=== PATIENT | female | born 1935 | race Caucasian/White ===

== ENCOUNTER 2018-04-24 12:55 | Emergency (ER) | payer MEDICARE, BC ==
--- NOTE | 2018-04-24 12:59 | EDM.PDOC ---
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 Past medical history: As per history of present illness and as reviewed below otherwise noncontributory. Surgical history: As per history of present illness and as reviewed below otherwise noncontributory. Social history: No reported history of drug or alcohol abuse. Family history: As per history of present illness and as reviewed below otherwise noncontributory. Physical exam: HEENT: Atraumatic, normocephalic, pupils reactive, negative for conjunctival pallor or scleral icterus, mucous membranes moist, throat clear, neck supple, nontender, trachea midline. Lungs: Clear to auscultation, breath sounds equal bilaterally, chest nontender. Heart: S1S2, regular, negative for clicks, rubs, or JVD. Abdomen: Soft, nondistended, nontender. Negative for masses or hepatosplenomegaly. Negative for costovertebral tenderness. Pelvis: Stable nontender. Genitourinary: Deferred. Rectal: Deferred. Extremities: Atraumatic, negative for cords or calf pain. Neurovascular unremarkable. Neuro: Awake, alert, oriented. Cranial nerves II through XII unremarkable. Cerebellum unremarkable. Motor and sensory unremarkable throughout. Exam nonfocal. Diagnostics: CBC CMP UA INR Head CT cervical spine CT no contrast [] chest 1 view pelvis 1 view plain films Therapeutics: [] continue current medications Return to [facility] Impression: []medical screening exam Definitive disposition and diagnosis as appropriate pending reevaluation and review of above. - Related Data Home Meds: Home Meds Acetaminophen 500 mg PO Q6H PRN 04/24/18 [History] Apixaban [Eliquis] 2.5 mg PO BID 04/24/18 [History] Aspirin 81 mg PO DAILY 04/24/18 [History] Carvedilol 3.125 mg PO BID 04/24/18 [History] Cholecalciferol (Vitamin D3) [Vitamin D3] 5,000 unit PO DAILY 04/24/18 [History] Ciprofloxacin HCl [Cipro] 250 mg PO BID 04/24/18 [History] Cranberry 500 mg PO DAILY 04/24/18 [History] Cyanocobalamin (Vitamin B-12) [B-12] 1,000 mcg PO DAILY 04/24/18 [History] Escitalopram [Lexapro] 10 mg PO DAILY 04/24/18 [History] Furosemide 10 mg PO DAILY 04/24/18 [History] Levothyroxine 112 mcg PO ACBREAKFAST 04/24/18 [History] Losartan [Cozaar] 25 mg PO DAILY 04/24/18 [History] Lutein/Minerals/Vit A,C & E [Ocuvite] 1 tab PO DAILY 04/24/18 [History] Multivitamin [One Daily] 1 each PO DAILY 04/24/18 [History] Sennosides/Docusate Sodium [Senna-Docusate Sodium Tablet] 1 each PO DAILY [History] levETIRAcetam [Keppra] 500 mg PO BID 04/24/18 [History] Review of Systems - Review of Systems Review Of Systems: See Below ED EXAM, GENERAL - Physical Exam Exam: See Below Course - Vital Signs Last Recorded V/S: Last Vital Signs Temp 98.7 F 04/24/18 12:58 Pulse 60 04/24/18 12:58 Resp 12 04/24/18 12:58 BP 142/44 H 04/24/18 12:58 Pulse Ox 97 04/24/18 12:58 - Orders/Labs/Meds Orders: Active Orders 24 hr Category Date Time Status UA RFX WISAM AND CULT IF INDIC [URIN] Stat Lab 04/24/18 12:58 Ordered Labs: Laboratory Tests 04/24/18 04/24/18 04/24/18 Range/Units 13:08 13:08 13:08 WBC 5.15 (4.0-11.0) K/uL RBC 4.04 L (4.30-5.90) M/uL Hgb 12.5 (12.0-16.0) g/dL Hct 37.4 (36.0-46.0) % MCV 92.6 (80.0-98.0) fL MCH 30.9 (27.0-32.0) pg MCHC 33.4 (31.0-37.0) g/dL RDW Std Deviation 45.6 (28.0-62.0) fl RDW Coeff of Tay 14 (11.0-15.0) % Plt Count 191 (150-400) K/uL MPV 9.50 (7.40-12.00) fL Neut % (Auto) 54.3 (48.0-80.0) % Lymph % (Auto) 33.8 (16.0-40.0) % Elliott % (Auto) 9.7 (0.0-15.0) % Eos % (Auto) 1.4 (0.0-7.0) % Baso % (Auto) 0.8 (0.0-1.5) % Neut # (Auto) 2.8 (1.4-5.7) K/uL Lymph # (Auto) 1.7 (0.6-2.4) K/uL Elliott # (Auto) 0.5 (0.0-0.8) K/uL Eos # (Auto) 0.1 (0.0-0.7) K/uL Baso # (Auto) 0.0 (0.0-0.1) K/uL Nucleated RBC % 0.0 /100WBC Nucleated RBCs # 0 K/uL INR 1.07 Sodium 139 (136-145) mmol/L Potassium 3.8 (3.5-5.1) mmol/L Chloride 104 (98-107) mmol/L Carbon Dioxide 26.0 (21.0-32.0) mmol/L BUN 18 (7.0-18.0) mg/dL Creatinine 1.0 (0.6-1.0) mg/dL Est Cr Clr Drug Dosing TNP Estimated GFR (MDRD) 52.8 ml/min Glucose 115 H (74-106) mg/dL Calcium 9.4 (8.5-10.1) mg/dL Total Bilirubin 0.4 (0.2-1.0) mg/dL AST 26 (15-37) IU/L ALT 27 (14-63) IU/L Alkaline Phosphatase 126 H (46-116) U/L Troponin I < 0.050 (0.000-0.056) ng/mL Total Protein 7.0 (6.4-8.2) g/dL Albumin 3.5 (3.4-5.0) g/dL Globulin 3.5 (2.6-4.0) g/dL Albumin/Globulin Ratio 1.0 (0.9-1.6) Departure - Departure Time of Disposition: 14:34 Disposition: Home, Self-Care 01 Condition: Good Clinical Impression: Encounter for medical screening examination - Discharge Information Forms: ED Department Discharge Additional Instructions: The following information is given to patients seen in the emergency department who are being discharged to home. This information is to outline your options for follow-up care. We provide all patients seen in our emergency department with a follow-up referral. The need for follow-up, as well as the timing and circumstances, are variable depending upon the specifics of your emergency department visit. If you don't have a primary care physician on staff, we will provide you with a referral. We always advise you to contact your personal physician following an emergency department visit to inform them of the circumstance of the visit and for follow-up with them and/or the need for any referrals to a consulting specialist. The emergency department will also refer you to a specialist when appropriate. This referral assures that you have the opportunity for follow-up care with a specialist. All of these measure are taken in an effort to provide you with optimal care, which includes your follow-up. Under all circumstances we always encourage you to contact your private physician who remains a resource for coordinating your care. When calling for follow-up care, please make the office aware that this follow-up is from your recent emergency room visit. If for any reason you are refused follow-up, please contact the [facility] emergency department at and asked to speak to the emergency department charge nurse. - My Orders Last 24 Hours: My Active Orders 04/24/18 12:58 UA RFX WISAM AND CULT IF INDIC [URIN] Stat - Assessment/Plan Last 24 Hours: My Active Orders 04/24/18 12:58 UA RFX WISAM AND CULT IF INDIC [URIN] Stat
[2018-04-24 13:47] LABS: CHLORIDE,CL 104 mmol/L (98-107); SODIUM,NA 139 mmol/L (136-145)
--- NOTE | 2018-04-24 13:59 | CR ---
EXAMINATION: Portable chest radiograph. HISTORY: Chest pain. FINDINGS: The trachea is midline. The cardiomediastinal silhouette is within normal limits. No pulmonary infiltrates, effusions or pneumothorax. Right glenohumeral replacement hardware noted. There is a left-sided pacemaker. Bone mineralization otherwise appears osteopenic. IMPRESSION: No acute cardiopulmonary process.
--- NOTE | 2018-04-24 14:01 | CR ---
EXAMINATION: Pelvis HISTORY: Pain COMPARISON: None TECHNIQUE: AP view FINDINGS: There is no acute osseous abnormality, dislocation, or fracture. Bone mineralization and joint spaces appear preserved. SI joints are symmetric. The iliopectineal lines are intact. Bowel gas projects over the pubic symphysis. Mild osteophyte formation within the hips, right greater than left. Partially visualized lumbar spine hardware. IMPRESSION: Mild degenerative changes without acute findings.
--- NOTE | 2018-04-24 14:13 | CT ---
EXAMINATION: Non contrast CT head. Coronal and sagittal reformats. HISTORY: Pain FINDINGS: No evidence of intra or extra axial hemorrhage, mass, midline shift, hydrocephalus or edema. There is encephalomalacia within the right occipital parietal region with overlying calvarial postsurgical changes. Moderate periventricular and subcortical white matter hypodensities noted. No hypoattenuation changes in the major vascular territories to suggest acute infarct. No abnormal intracranial calcifications are detected. No evidence of substantial vascular calcifications. Paranasal sinuses and mastoid air cells are well aerated without substantial findings. Orbits and globes are symmetric. Pituitary fossa appears unremarkable. Calvarium is otherwise intact. No evidence of skull fracture. IMPRESSION: 1. No definite acute intracranial findings. 2. Right occipitoparietal postsurgical changes and encephalomalacia. 3. Moderate small vessel ischemic changes.
--- NOTE | 2018-04-24 14:15 | CT ---
EXAMINATION: CT cervical spine HISTORY: Pain COMPARISON: None TECHNIQUE: Axial CT imaging obtained through the cervical spine without contrast. Coronal and sagittal reconstructions obtained. FINDINGS: There is reversal of the normal cervical lordosis. Vertebral body heights and disc spaces appear well-maintained. As discussed [place] there is no fracture or acute osseous abnormality. Bone mineralization is mildly osteopenic. Marginal osteophyte formation is noted. Lung apices are clear. Paravertebral soft tissues appear normal. IMPRESSION: 1. Osteopenia and degenerative changes within the cervical spine without acute findings.
== END 2018-04-24 14:49 | disposition home or self-care (01) ==
LOC: MW.ED 12:55
DX: R51 Headache (principal); Z13.9 Encounter for screening, unspecified; R29.6 Repeated falls; Z79.82 Long term (current) use of aspirin; Z79.899 Other long term (current) drug therapy
CPT/HCPCS: 36415; 70450; 70450-26; 71045; 71045-26; 72125; 72125-26; 72170; 72170-26; 80053; 84484; 85025; 85610; 99284; 99284-25

== ENCOUNTER 2018-04-25 15:04 | Observation (INO) | payer MEDICARE, BC ==
[2018-04-25] MEDS ORDERED: Sodium Chloride 0.9% 500 ML IV SCH (15:30)
[2018-04-25] MEDS ORDERED: Sodium Chloride 0.9% 10 ML Syringe FLUSH PRN (15:30)
[2018-04-25] MEDS ORDERED: Sodium Chloride 0.9% 2.5 ML Syringe FLUSH PRN (15:30)
--- NOTE | 2018-04-25 15:32 | EDM.PDOC ---
ED HPI GENERAL MEDICAL PROBLEM - General Chief Complaint: General Stated Complaint: SPOKE TO NURSE Time Seen by Provider: 04/25/18 15:17 - History of Present Illness INITIAL COMMENTS - FREE TEXT/NARRATIVE: HISTORY AND PHYSICAL: History of present illness: The patient is 82-year-old female who resides at [facility] in their basic care unit and has a history of hypertension hypothyroidism pacemaker for irregular heartbeat and a recent UTI for which she was treated with antibiotics, Cipro, and finished yesterday and was seen here yesterday after several falls. According to the providers note she had had at least 2 falls over the last week or so and her last fall at 6 AM yesterday and she is currently on Eliquis and was sent here for evaluation. No one witnessed the fall but the patient complained of a headache. Yesterday the patient had a CT scan of her head C-spine as well as a chest x-ray and pelvis x-ray and labs all of which were negative. The patient does have a history of a hemorrhagic stroke with a craniotomy in the right occipitoparietal area and postsurgical changes were seen on the CT scan. And was confused on the evaluation yesterday and according to the son at bedside as well as the providers at [facility] this is been an on and off process over the last several weeks to months. She has had days where she was more confused and altered than other days and she has also had days where she has pushed it or showed other individuals at the [facility] over the last 3 weeks. The patient was [facility] the [facility] and according to the note that was sent with the patient today from the director translation at [facility] she had to be moved to the [facility] side because she was unable to care for herself yesterday after being seen. She rates her note that she has had 2 falls this week and has been wandering into other people's rooms and has had periods of this wandering in the last 2 weeks she's been trying to escape the facility. The pushing hitting and shoving was worse today than it is ever been but she has had episodes of this over the last 3 weeks. She was also very verbally loud and verbally aggressive this afternoon. It was noticed that she was unable to feed herself and that she seemed to be unaware of what silverware to use and she was also sucking on her thumb. Hoarding to the sum she has had waxing and waning episodes over the last few weeks as the nurse documents but over the last 2 days he says there is been an abrupt acceleration. He says he sees her every day and 2 days ago she was more to baseline and yesterday and today she is significantly different. In the ED the patient denies any complaints of any pain currently and is actually unsure why she is here. She has no recall of any these events when I try to prompt her. She thinks it's 1944 but knows her own name and knows the president is. The patient was sent here by [place] [facility] because they would need to move her to their locked unit due to safety factors and wants to make sure of why there is been suction acceleration over the last 2 days. The patient also has a history of bilateral knee replacement and has no complaints of any extremity pain and no neck or back pain. He noticed a bruise on her left posterior ribs on my evaluation and she says that this is tender but she did not offer complaints of pain without my prompting. According to the paperwork the patient is a code 3 status. The patient is also on Keppra likely due to her prior surgeries for preventative. The son and nursing from [place] documents that the patient finished her antibiotics yesterday. Nursing also documents that she was unable to stand after being seen in the ED yesterday but today she is able to ambulate into the ED without assistance with her walker. There is also documentation that the patient became more verbally aggressive and tried to hit staff and push them when they were trying to give her her medications and she was refusing to take her medications The son also tells me that she has had intermittent bouts of paranoia where she thinks people are watching her or doing things to her and then she will be improved. Review of systems: As per history of present illness and below otherwise all systems reviewed and negative. Past medical history: As per history of present illness and as reviewed below otherwise noncontributory. Surgical history: As per history of present illness and as reviewed below otherwise noncontributory. Social history: No reported history of drug or alcohol abuse. Family history: As per history of present illness and as reviewed below otherwise noncontributory. Physical exam: General: Well-developed well-nourished female who is cooperative in the room and is alert and oriented to her own person but not the year and knows who the president is. She is interactive with me but quiet and follows all simple commands. The signs are noted by me. HEENT: Atraumatic, normocephalic, pupils reactive, negative for conjunctival pallor or scleral icterus, mucous membranes moist, throat clear, neck supple, nontender, trachea midline. Lungs: Clear to auscultation, breath sounds equal bilaterally, chest nontender. There is a subacute ecchymosis seen at the left posterior rib areas but there is no crepitus defects or deformities and really only minimal tenderness on deep palpation. Heart: S1S2, regular rate and rhythm no overt murmurs Abdomen: Soft, nondistended, nontender. Negative for masses or hepatosplenomegaly. Negative for costovertebral tenderness. Pelvis: Stable nontender. Genitourinary: Deferred. Rectal: Deferred. Extremities: Atraumatic, negative for cords or calf pain. Neurovascular unremarkable. Neuro: Awake, alert, oriented to person but not time. Cranial nerves II through XII unremarkable. Cerebellum unremarkable. Motor and sensory unremarkable throughout. Exam nonfocal. The patient has good strength in the bed and actually ambulated into the ED with her walker without any distress Back: there are no midline step-offs tenderness or defects of the thoracic or lumbar spine and no posterior pelvis tenderness. Please see above for posterior rib exam Diagnostics: EKG CBC CMP INR troponin TSH UA urine culture CT scan of the head left rib x- rays with chest Keppra level Therapeutics: IV O2 monitor gentle IV fluids and Rocephin Please note that when the nurse was trying to obtain the blood she initially was calm and then started trying to hit nursing and she did kick her son. The patient was able to be redirected and calm down to get the procedure performed. 1900: Was discussed with our hospitalist Dr. Gama and he is aware of the breath of this case. Currently the patient is calm but does have the propensity to act out when she is asked to do something or procedure that she does not like. I discussed at length with the son at bedside who is very concerned and feels that there is some potential medical issue even though I tried to stress to him that this is likely just a progression of her confusion/dementia that she has exhibited over the last few weeks and it is just more accelerated as a result of the falls. I've also discussed with him that there is still some sign of a potential UTI and a culture will be sent and I will give a dose of Rocephin. Dr Gama is willing to admit this patient for observation and the son is aware that she will likely need to go back to [place] in the locked unit and may need to go on medication to control some of these behaviors. Lanette will reevaluate the patient for need for medication and will have a dialogue with a provider at [place] as indicated Impression: Progressive confusion, acute on chronic rule out acceleration dementia; recently treated UTI with residual UTI Definitive disposition and diagnosis as appropriate pending reevaluation and review of above. - Related Data Allergies Allergy/AdvReac Type Severity Reaction Status Date / Time No Known Allergies Allergy Verified 04/25/18 15:20 Home Meds: Home Meds Acetaminophen 500 mg PO Q6H PRN 04/24/18 [History] Apixaban [Eliquis] 2.5 mg PO BID 04/24/18 [History] Aspirin 81 mg PO DAILY 04/24/18 [History] Carvedilol 3.125 mg PO BID 04/24/18 [History] Cholecalciferol (Vitamin D3) [Vitamin D3] 5,000 unit PO DAILY 04/24/18 [History] Ciprofloxacin HCl [Cipro] 250 mg PO BID 04/24/18 [History] Cyanocobalamin (Vitamin B-12) [B-12] 1,000 mcg PO DAILY 04/24/18 [History] Escitalopram [Lexapro] 10 mg PO DAILY 04/24/18 [History] Furosemide 10 mg PO QAM 04/24/18 [History] Levothyroxine 112 mcg PO ACBREAKFAST 04/24/18 [History] Losartan [Cozaar] 25 mg PO DAILY 04/24/18 [History] Lutein/Minerals/Vit A,C & E [Ocuvite] 1 tab PO DAILY 04/24/18 [History] Multivitamin [One Daily] 1 each PO DAILY 04/24/18 [History] levETIRAcetam [Keppra] 500 mg PO BID 04/24/18 [History] Cranberry Fruit Extract/Vit C [Cvs Cranberry-Vitamin C Sfgl] 1 each PO DAILY 03/15 [History] Past Medical History HEENT History: Reports: Impaired Vision Cardiovascular History: Reports: Afib, High Cholesterol Gastrointestinal History: Reports: Chronic Constipation Genitourinary History: Reports: UTI, Recurrent Musculoskeletal History: Reports: Osteoarthritis Neurological History: Reports: CVA Other Neuro History: hemoragic CVA Endocrine/Metabolic History: Reports: Hypothyroidism - Past Surgical History Musculoskeletal Surgical History: Reports: Knee Replacement Other Musculoskeletal Surgeries/Procedures:: right knee replacement Social & Family History - Family History Family Medical History: Noncontributory ED ROS GENERAL - Review of Systems Review Of Systems: ROS reveals no pertinent complaints other than HPI. ED EXAM, GENERAL - Physical Exam Exam: See Below (See dictation) Course - Vital Signs Last Recorded V/S: Last Vital Signs Temp 36.3 C 04/25/18 15:24 Pulse 75 04/25/18 18:58 Resp 18 04/25/18 15:24 BP 163/99 H 04/25/18 18:58 Pulse Ox 97 04/25/18 18:58 - Orders/Labs/Meds Orders: Active Orders 24 hr Category Date Time Status Patient Status [ADT] Stat ADT 04/25/18 19:13 Ordered Blood Glucose Check, Bedside [RC] ONETIME Care 04/25/18 15:29 Active Cardiac Monitoring [RC] . DIRECTED Care 04/25/18 15:29 Active EKG Documentation Completion [RC] STAT Care 04/25/18 15:29 Active Oxygen Therapy, ED [RC] ASDIRECTED Care 04/25/18 15:29 Active Pulse Oximetry [RC] ASDIRECTED Care 04/25/18 15:29 Active Ribs 2V w Chest Lt [CR] Stat Exams 04/25/18 15:33 Taken CULTURE URINE [RM] Stat Lab 04/25/18 17:50 Received LEVETIRACETAM, S [REF] Stat Lab 04/25/18 16:04 Received Sodium Chloride 0.9% [Normal Saline] 500 ml Med 04/25/18 15:30 Active IV STAT Sodium Chloride 0.9% [Saline Flush] Med 04/25/18 15:30 Active 10 ml FLUSH ASDIRECTED PRN Sodium Chloride 0.9% [Saline Flush] Med 04/25/18 15:30 Active 2.5 ml FLUSH ASDIRECTED PRN cefTRIAXone [Rocephin in Dextrose,Iso-Osm 1 GM/50 ML] 1 Med 04/25/18 19:07 Ordered gm Premix Bag 1 bag IV ONETIME Saline Lock Insert [OM.PC] Stat Oth 04/25/18 15:29 Ordered Medication Orders Sodium Chloride (Normal Saline) 500 mls @ 999 mls/hr IV STAT WARREN Last Admin: 04/25/18 16:06 Dose: 999 mls/hr Ceftriaxone Sodium/Dextrose 1 (gm/ Premix) 50 mls @ 100 mls/hr IV ONETIME ONE Stop: 04/25/18 19:36 Sodium Chloride (Saline Flush) 10 ml FLUSH ASDIRECTED PRN PRN Reason: Keep Vein Open Last Admin: 04/25/18 16:06 Dose: 10 ml Sodium Chloride (Saline Flush) 2.5 ml FLUSH ASDIRECTED PRN PRN Reason: Keep Vein Open Last Admin: 04/25/18 16:06 Dose: 2.5 ml Labs: Laboratory Tests 04/25/18 04/25/18 04/25/18 Range/Units 16:04 16:04 16:04 WBC 5.00 (4.0-11.0) K/uL RBC 4.03 L (4.30-5.90) M/uL Hgb 12.5 (12.0-16.0) g/dL Hct 37.5 (36.0-46.0) % MCV 93.1 (80.0-98.0) fL MCH 31.0 (27.0-32.0) pg MCHC 33.3 (31.0-37.0) g/dL RDW Std Deviation 46.5 (28.0-62.0) fl RDW Coeff of Tay 14 (11.0-15.0) % Plt Count 204 (150-400) K/uL MPV 9.70 (7.40-12.00) fL Neut % (Auto) 40.8 L (48.0-80.0) % Lymph % (Auto) 43.4 H (16.0-40.0) % Pope % (Auto) 13.2 (0.0-15.0) % Eos % (Auto) 1.8 (0.0-7.0) % Baso % (Auto) 0.8 (0.0-1.5) % Neut # (Auto) 2.0 (1.4-5.7) K/uL Lymph # (Auto) 2.2 (0.6-2.4) K/uL Pope # (Auto) 0.7 (0.0-0.8) K/uL Eos # (Auto) 0.1 (0.0-0.7) K/uL Baso # (Auto) 0.0 (0.0-0.1) K/uL Nucleated RBC % 0.0 /100WBC Nucleated RBCs # 0 K/uL INR 1.05 Sodium 140 (136-145) mmol/L Potassium 4.3 (3.5-5.1) mmol/L Chloride 106 (98-107) mmol/L Carbon Dioxide 28.8 (21.0-32.0) mmol/L BUN 18 (7.0-18.0) mg/dL Creatinine 0.9 (0.6-1.0) mg/dL Est Cr Clr Drug Dosing 38.49 mL/min Estimated GFR (MDRD) 59.7 ml/min Glucose 99 (74-106) mg/dL Calcium 9.3 (8.5-10.1) mg/dL Total Bilirubin 0.4 (0.2-1.0) mg/dL AST 25 (15-37) IU/L ALT 26 (14-63) IU/L Alkaline Phosphatase 118 H (46-116) U/L Troponin I < 0.050 (0.000-0.056) ng/mL Total Protein 7.0 (6.4-8.2) g/dL Albumin 3.5 (3.4-5.0) g/dL Globulin 3.5 (2.6-4.0) g/dL Albumin/Globulin Ratio 1.0 (0.9-1.6) TSH 3rd Generation 0.12 L (0.36-3.74) uIU/mL Urine Color Urine Appearance Urine pH (5.0-8.0) Ur Specific [place] (1.001-1.035) Urine Protein (NEGATIVE) mg/dL Urine Glucose (UA) (NEGATIVE) mg/dL Urine Ketones (NEGATIVE) mg/dL Urine Occult Blood (NEGATIVE) Urine Nitrite (NEGATIVE) Urine Bilirubin (NEGATIVE) Urine Urobilinogen (<2.0) EU/dL Ur Leukocyte Esterase (NEGATIVE) Urine RBC (0-2/HPF) Urine WBC (0-5/HPF) Ur Epithelial Cells (NONE-FEW) Urine Bacteria (NEGATIVE) 04/25/18 Range/Units 17:50 WBC (4.0-11.0) K/uL RBC (4.30-5.90) M/uL Hgb (12.0-16.0) g/dL Hct (36.0-46.0) % MCV (80.0-98.0) fL MCH (27.0-32.0) pg MCHC (31.0-37.0) g/dL RDW Std Deviation (28.0-62.0) fl RDW Coeff of Tay (11.0-15.0) % Plt Count (150-400) K/uL MPV (7.40-12.00) fL Neut % (Auto) (48.0-80.0) % Lymph % (Auto) (16.0-40.0) % Pope % (Auto) (0.0-15.0) % Eos % (Auto) (0.0-7.0) % Baso % (Auto) (0.0-1.5) % Neut # (Auto) (1.4-5.7) K/uL Lymph # (Auto) (0.6-2.4) K/uL Pope # (Auto) (0.0-0.8) K/uL Eos # (Auto) (0.0-0.7) K/uL Baso # (Auto) (0.0-0.1) K/uL Nucleated RBC % /100WBC Nucleated RBCs # K/uL INR Sodium (136-145) mmol/L Potassium (3.5-5.1) mmol/L Chloride (98-107) mmol/L Carbon Dioxide (21.0-32.0) mmol/L BUN (7.0-18.0) mg/dL Creatinine (0.6-1.0) mg/dL Est Cr Clr Drug Dosing mL/min Estimated GFR (MDRD) ml/min Glucose (74-106) mg/dL Calcium (8.5-10.1) mg/dL Total Bilirubin (0.2-1.0) mg/dL AST (15-37) IU/L ALT (14-63) IU/L Alkaline Phosphatase (46-116) U/L Troponin I (0.000-0.056) ng/mL Total Protein (6.4-8.2) g/dL Albumin (3.4-5.0) g/dL Globulin (2.6-4.0) g/dL Albumin/Globulin Ratio (0.9-1.6) TSH 3rd Generation (0.36-3.74) uIU/mL Urine Color YELLOW Urine Appearance HAZY Urine pH 6.5 (5.0-8.0) Ur Specific [place] 1.010 (1.001-1.035) Urine Protein NEGATIVE (NEGATIVE) mg/dL Urine Glucose (UA) NEGATIVE (NEGATIVE) mg/dL Urine Ketones NEGATIVE (NEGATIVE) mg/dL Urine Occult Blood NEGATIVE (NEGATIVE) Urine Nitrite NEGATIVE (NEGATIVE) Urine Bilirubin NEGATIVE (NEGATIVE) Urine Urobilinogen 0.2 (<2.0) EU/dL Ur Leukocyte Esterase SMALL H (NEGATIVE) Urine RBC 0-2 (0-2/HPF) Urine WBC 1-5 (0-5/HPF) Ur Epithelial Cells MODERATE (NONE-FEW) Urine Bacteria FEW (NEGATIVE) Meds: Medications Generic Name Dose Route Start Last Admin Trade Name Freq PRN Reason Stop Dose Admin Sodium Chloride 500 mls @ 999 mls/hr 04/25/18 15:30 04/25/18 16:06 Normal Saline IV 999 mls/hr STAT WARREN Administration Ceftriaxone Sodium/Dextrose 1 50 mls @ 100 mls/hr 04/25/18 19:07 gm/ Premix IV 04/25/18 19:36 ONETIME ONE Sodium Chloride 10 ml 04/25/18 15:30 04/25/18 16:06 Saline Flush FLUSH 10 ml ASDIRECTED PRN Administration Keep Vein Open Sodium Chloride 2.5 ml 04/25/18 15:30 04/25/18 16:06 Saline Flush FLUSH 2.5 ml ASDIRECTED PRN Administration Keep Vein Open Departure - Departure Time of Disposition: 19:18 Disposition: Refer to Observation Condition: Good Clinical Impression: Confusion - Discharge Information Referrals: PCP,Unknown [Primary Care Provider] - Forms: ED Department Discharge - My Orders Last 24 Hours: My Active Orders 04/25/18 15:29 Blood Glucose Check, Bedside [RC] ONETIME Cardiac Monitoring [RC] . DIRECTED EKG Documentation Completion [RC] STAT Oxygen Therapy, ED [RC] ASDIRECTED Pulse Oximetry [RC] ASDIRECTED Saline Lock Insert [OM.PC] Stat 04/25/18 15:30 Sodium Chloride 0.9% [Normal Saline] 500 ml IV STAT Sodium Chloride 0.9% [Saline Flush] 10 ml FLUSH ASDIRECTED PRN Sodium Chloride 0.9% [Saline Flush] 2.5 ml FLUSH ASDIRECTED PRN 04/25/18 15:33 Ribs 2V w Chest Lt [CR] Stat 04/25/18 16:04 LEVETIRACETAM, S [REF] Stat 04/25/18 17:50 CULTURE URINE [RM] Stat 04/25/18 19:07 cefTRIAXone [Rocephin in Dextrose,Iso-Osm 1 GM/50 ML] 1 gm Premix Bag 1 bag IV ONETIME 04/25/18 19:13 Patient Status [ADT] Stat - Assessment/Plan Last 24 Hours: My Active Orders 04/25/18 15:29 Blood Glucose Check, Bedside [RC] ONETIME Cardiac Monitoring [RC] . DIRECTED EKG Documentation Completion [RC] STAT Oxygen Therapy, ED [RC] ASDIRECTED Pulse Oximetry [RC] ASDIRECTED Saline Lock Insert [OM.PC] Stat 04/25/18 15:30 Sodium Chloride 0.9% [Normal Saline] 500 ml IV STAT Sodium Chloride 0.9% [Saline Flush] 10 ml FLUSH ASDIRECTED PRN Sodium Chloride 0.9% [Saline Flush] 2.5 ml FLUSH ASDIRECTED PRN 04/25/18 15:33 Ribs 2V w Chest Lt [CR] Stat 04/25/18 16:04 LEVETIRACETAM, S [REF] Stat 04/25/18 17:50 CULTURE URINE [RM] Stat 04/25/18 19:07 cefTRIAXone [Rocephin in Dextrose,Iso-Osm 1 GM/50 ML] 1 gm Premix Bag 1 bag IV ONETIME 04/25/18 19:13 Patient Status [ADT] Stat
[2018-04-25 16:49] LABS: CHLORIDE,CL 106 mmol/L (98-107); SODIUM,NA 140 mmol/L (136-145)
--- NOTE | 2018-04-25 18:03 | CT ---
INDICATION: Recent fall. Increased confusion. TECHNIQUE: Head CT without contrast. COMPARISON: April 24, 2018. FINDINGS: CSF spaces: Within normal limits for age. Brain parenchyma: There are nonspecific low attenuation white matter changes consistent with chronic microvascular disease. Stable right occipital encephalomalacia. No sign of mass, hemorrhage, or midline shift. Skull base and calvarium: The visualized paranasal sinuses and mastoid air cells demonstrate no acute or significant findings. The visualized orbits are grossly unremarkable. No skull fractures. IMPRESSION: No acute or significant findings.No change from the prior exam. Please note that all CT scans at this facility use dose modulation, iterative reconstruction, and/or weight-based dosing when appropriate to reduce radiation dose to as low as reasonably achievable. Dictated by Kaushik Orellana MD @ Apr 25 2018 5:57PM Signed by Dr. Kaushik Orellana @ Apr 25 2018 6:01PM
[2018-04-25] MEDS ORDERED: cefTRIAXone 1 GM in Premix Bag 1 BAG IV ONE (19:07)
[2018-04-25] MEDS ORDERED: oxyCODONE 5 MG Tab PO PRN (20:48)
[2018-04-25] MEDS ORDERED: Acetaminophen 325 MG Tab PO PRN (20:48)
[2018-04-25] MEDS ORDERED: Ondansetron 4 MG/2 ML SDV IVPUSH PRN (20:49)
[2018-04-25] MEDS: Sodium Chloride 0.9% 1,000 ML IV SCH (22:00)
--- NOTE | 2018-04-26 07:24 | PCM.HP ---
H&P History of Present Illness - General Date of Service: 04/26/18 Admit Problem/Dx: Admission Diagnosis/Problem Admission Diagnosis/Problem Confusion Source of Information: Patient, EMS Notes Reviewed, Old Records History Limitations: Reports: Altered Mental Status - History of Present Illness Initial Comments - Free Text/Narative: The patient is an 82-year-old lady who is a resident at [facility] has presented to the emergency department after concern for confusion as well as a history of more frequent falling. The patient is currently anticoagulated on Eliquis and imaging had been obtained on April 24, 2018. Imaging thus far is negative for acute findings. According to the patient's charting she has been more aggressive, verbally loud and has not been able to complete her activities of daily living while at the [facility]. [facility] had been concerned about the patient wandering and likely will need to have placement and a locked unit. The patient today is somewhat confused. She is not sure why she is here. She has no memory of apparent events in the emergency department yesterday. 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 Patient's family is not with her at this time. Also, according to charting the patient has been exhibiting bouts of paranoia. Her history and review of systems is not reliable. Onset of Symptoms: Reports: Unknown/Unsure Improves with: Reports: None Worsens with: Reports: None - Related Data Allergies/Adverse Reactions: Allergies Allergy/AdvReac Type Severity Reaction Status Date / Time No Known Allergies Allergy Verified 04/25/18 15:20 Home Medications: Home Meds Acetaminophen 500 mg PO Q6H PRN 04/24/18 [History] Apixaban [Eliquis] 2.5 mg PO BID 04/24/18 [History] Aspirin 81 mg PO DAILY 04/24/18 [History] Carvedilol 3.125 mg PO BID 04/24/18 [History] Cholecalciferol (Vitamin D3) [Vitamin D3] 5,000 unit PO DAILY 04/24/18 [History] Ciprofloxacin HCl [Cipro] 250 mg PO BID 04/24/18 [History] Cyanocobalamin (Vitamin B-12) [B-12] 1,000 mcg PO DAILY 04/24/18 [History] Escitalopram [Lexapro] 10 mg PO DAILY 04/24/18 [History] Furosemide 10 mg PO QAM 04/24/18 [History] Levothyroxine 112 mcg PO ACBREAKFAST 04/24/18 [History] Losartan [Cozaar] 25 mg PO DAILY 04/24/18 [History] Lutein/Minerals/Vit A,C & E [Ocuvite] 1 tab PO DAILY 04/24/18 [History] Multivitamin [One Daily] 1 each PO DAILY 04/24/18 [History] levETIRAcetam [Keppra] 500 mg PO BID 04/24/18 [History] Cranberry Fruit Extract/Vit C [Cvs Cranberry-Vitamin C Sfgl] 1 each PO DAILY 03/15 [History] Past Medical History HEENT History: Reports: Impaired Vision Cardiovascular History: Reports: Afib, High Cholesterol, Hypertension, Pacemaker Gastrointestinal History: Reports: Chronic Constipation Genitourinary History: Reports: UTI, Recurrent Musculoskeletal History: Reports: Osteoarthritis Neurological History: Reports: CVA Other Neuro History: hemoragic CVA Psychiatric History: Reports: Dementia Endocrine/Metabolic History: Reports: Hypothyroidism - Infectious Disease History Infectious Disease History: Reports: None - Past Surgical History Head Surgeries/Procedures: Reports: Craniotomy HEENT Surgical History: Reports: None GI Surgical History: Reports: None Female Surgical History: Reports: None Endocrine Surgical History: Reports: None Musculoskeletal Surgical History: Reports: Knee Replacement Other Musculoskeletal Surgeries/Procedures:: bilateral knee replacement Social & Family History - Family History Family Medical History: Noncontributory - Tobacco Use Smoking Status *Q: Unknown Ever Smoked - Caffeine Use Caffeine Use: Reports: None - Recreational Drug Use Recreational Drug Use: No - Living Situation & Occupation Living situation: Reports: , Extended Care Facility Occupation: Retired H&P Review of Systems - Review of Systems: Review Of Systems: Unable To Obtain Exam - Exam Exam: See Below - Vital Signs Vital Signs: Last Vital Signs Temp 36.6 C 04/26/18 04:00 Pulse 70 04/26/18 04:00 Resp 18 04/26/18 04:00 BP 154/60 H 04/26/18 04:00 Pulse Ox 95 04/26/18 04:00 Weight: 69.456 kg - Exam Quality Assessment: No: Supplemental Oxygen General: Alert, Oriented, Cooperative HEENT: Conjunctiva Clear, EACs Clear, EOMI, Nares Patent, PERRLA. No: Mucosa Moist & Onsted (Dry) Neck: Supple, Trachea Midline Lungs: Clear to Auscultation, Normal Respiratory Effort Cardiovascular: Regular Rate, Irregular Rhythm GI/Abdominal Exam: Normal Bowel Sounds, Soft, Non-Tender, No Distention (Female) Exam: Deferred Rectal (Female) Exam: Deferred Back Exam: Normal Inspection (Kyphosis), Full Range of Motion (Age-related restrictions) Extremities: Normal Inspection (For age), No Pedal Edema Skin: Warm, Dry, Intact Neuro Extensive - Mental Status: Alert. No: Oriented x3 (Alert to person) Psychiatric: Alert, Normal Affect, Normal Mood - Patient Data Lab Results Last 24 hrs: Laboratory Results - last 24 hr 04/25/18 04/25/18 04/25/18 Range/Units 16:04 16:04 16:04 WBC 5.00 (4.0-11.0) K/uL RBC 4.03 L (4.30-5.90) M/uL Hgb 12.5 (12.0-16.0) g/dL Hct 37.5 (36.0-46.0) % MCV 93.1 (80.0-98.0) fL MCH 31.0 (27.0-32.0) pg MCHC 33.3 (31.0-37.0) g/dL RDW Std Deviation 46.5 (28.0-62.0) fl RDW Coeff of Tay 14 (11.0-15.0) % Plt Count 204 (150-400) K/uL MPV 9.70 (7.40-12.00) fL Neut % (Auto) 40.8 L (48.0-80.0) % Lymph % (Auto) 43.4 H (16.0-40.0) % [place] % (Auto) 13.2 (0.0-15.0) % Eos % (Auto) 1.8 (0.0-7.0) % Baso % (Auto) 0.8 (0.0-1.5) % Neut # (Auto) 2.0 (1.4-5.7) K/uL Lymph # (Auto) 2.2 (0.6-2.4) K/uL [place] # (Auto) 0.7 (0.0-0.8) K/uL Eos # (Auto) 0.1 (0.0-0.7) K/uL Baso # (Auto) 0.0 (0.0-0.1) K/uL Nucleated RBC % 0.0 /100WBC Nucleated RBCs # 0 K/uL INR 1.05 Sodium 140 (136-145) mmol/L Potassium 4.3 (3.5-5.1) mmol/L Chloride 106 (98-107) mmol/L Carbon Dioxide 28.8 (21.0-32.0) mmol/L BUN 18 (7.0-18.0) mg/dL Creatinine 0.9 (0.6-1.0) mg/dL Est Cr Clr Drug Dosing 38.49 mL/min Estimated GFR (MDRD) 59.7 ml/min Glucose 99 (74-106) mg/dL Calcium 9.3 (8.5-10.1) mg/dL Total Bilirubin 0.4 (0.2-1.0) mg/dL AST 25 (15-37) IU/L ALT 26 (14-63) IU/L Alkaline Phosphatase 118 H (46-116) U/L Troponin I < 0.050 (0.000-0.056) ng/mL Total Protein 7.0 (6.4-8.2) g/dL Albumin 3.5 (3.4-5.0) g/dL Globulin 3.5 (2.6-4.0) g/dL Albumin/Globulin Ratio 1.0 (0.9-1.6) TSH 3rd Generation 0.12 L (0.36-3.74) uIU/mL Urine Color Urine Appearance Urine pH (5.0-8.0) Ur Specific [place] (1.001-1.035) Urine Protein (NEGATIVE) mg/dL Urine Glucose (UA) (NEGATIVE) mg/dL Urine Ketones (NEGATIVE) mg/dL Urine Occult Blood (NEGATIVE) Urine Nitrite (NEGATIVE) Urine Bilirubin (NEGATIVE) Urine Urobilinogen (<2.0) EU/dL Ur Leukocyte Esterase (NEGATIVE) Urine RBC (0-2/HPF) Urine WBC (0-5/HPF) Ur Epithelial Cells (NONE-FEW) Urine Bacteria (NEGATIVE) 04/25/18 Range/Units 17:50 WBC (4.0-11.0) K/uL RBC (4.30-5.90) M/uL Hgb (12.0-16.0) g/dL Hct (36.0-46.0) % MCV (80.0-98.0) fL MCH (27.0-32.0) pg MCHC (31.0-37.0) g/dL RDW Std Deviation (28.0-62.0) fl RDW Coeff of Tay (11.0-15.0) % Plt Count (150-400) K/uL MPV (7.40-12.00) fL Neut % (Auto) (48.0-80.0) % Lymph % (Auto) (16.0-40.0) % [place] % (Auto) (0.0-15.0) % Eos % (Auto) (0.0-7.0) % Baso % (Auto) (0.0-1.5) % Neut # (Auto) (1.4-5.7) K/uL Lymph # (Auto) (0.6-2.4) K/uL [place] # (Auto) (0.0-0.8) K/uL Eos # (Auto) (0.0-0.7) K/uL Baso # (Auto) (0.0-0.1) K/uL Nucleated RBC % /100WBC Nucleated RBCs # K/uL INR Sodium (136-145) mmol/L Potassium (3.5-5.1) mmol/L Chloride (98-107) mmol/L Carbon Dioxide (21.0-32.0) mmol/L BUN (7.0-18.0) mg/dL Creatinine (0.6-1.0) mg/dL Est Cr Clr Drug Dosing mL/min Estimated GFR (MDRD) ml/min Glucose (74-106) mg/dL Calcium (8.5-10.1) mg/dL Total Bilirubin (0.2-1.0) mg/dL AST (15-37) IU/L ALT (14-63) IU/L Alkaline Phosphatase (46-116) U/L Troponin I (0.000-0.056) ng/mL Total Protein (6.4-8.2) g/dL Albumin (3.4-5.0) g/dL Globulin (2.6-4.0) g/dL Albumin/Globulin Ratio (0.9-1.6) TSH 3rd Generation (0.36-3.74) uIU/mL Urine Color YELLOW Urine Appearance HAZY Urine pH 6.5 (5.0-8.0) Ur Specific [place] 1.010 (1.001-1.035) Urine Protein NEGATIVE (NEGATIVE) mg/dL Urine Glucose (UA) NEGATIVE (NEGATIVE) mg/dL Urine Ketones NEGATIVE (NEGATIVE) mg/dL Urine Occult Blood NEGATIVE (NEGATIVE) Urine Nitrite NEGATIVE (NEGATIVE) Urine Bilirubin NEGATIVE (NEGATIVE) Urine Urobilinogen 0.2 (<2.0) EU/dL Ur Leukocyte Esterase SMALL H (NEGATIVE) Urine RBC 0-2 (0-2/HPF) Urine WBC 1-5 (0-5/HPF) Ur Epithelial Cells MODERATE (NONE-FEW) Urine Bacteria FEW (NEGATIVE) Result Diagrams: 04/25/18 16:04 04/25/18 16:04 - Problem List (1) UTI (urinary tract infection) SNOMED Code(s): 33005370 ICD Code: N39.0 - URINARY TRACT INFECTION, SITE NOT SPECIFIED Status: Acute Priority: High Current Visit: Yes Qualifiers: Urinary tract infection type: site unspecified Hematuria presence: without hematuria Qualified Code(s): N39.0 - Urinary tract infection, site not specified (2) Confusion SNOMED Code(s): 665657209 ICD Code: R41.0 - DISORIENTATION, UNSPECIFIED Status: Acute Priority: High Current Visit: Yes (3) Chronic anticoagulation SNOMED Code(s): 455262223 ICD Code: Z79.01 - TAXI SERVICER (CURRENT) USE OF ANTICOAGULANTS Status: Chronic Priority: Medium Current Visit: Yes (4) Frequent falls SNOMED Code(s): 936805929 ICD Code: R29.6 - REPEATED FALLS Status: Chronic Priority: Medium Current Visit: Yes (5) History of hemorrhagic cerebrovascular accident (CVA) with residual deficit SNOMED Code(s): 626496425651306 ICD Code: I69.30 - UNSPECIFIED SEQUELAE OF CEREBRAL INFARCTION Status: Chronic Priority: Medium Current Visit: Yes (6) Hypothyroidism (acquired) SNOMED Code(s): 950418347 ICD Code: E03.9 - HYPOTHYROIDISM, UNSPECIFIED Status: Chronic Priority: Medium Current Visit: Yes (7) Pacemaker SNOMED Code(s): 134825087 ICD Code: Z95.0 - PRESENCE OF CARDIAC PACEMAKER Status: Chronic Priority : Medium Current Visit: Yes (8) Atrial fibrillation SNOMED Code(s): 75544253 ICD Code: I48.91 - UNSPECIFIED ATRIAL FIBRILLATION Status: Chronic Priority: Medium Current Visit: Yes Qualifiers: Atrial fibrillation type: chronic Qualified Code(s): I48.2 - Chronic atrial fibrillation (9) Hypertension SNOMED Code(s): 33274660 ICD Code: I10 - ESSENTIAL (PRIMARY) HYPERTENSION Status: Chronic Priority : Medium Current Visit: Yes Qualifiers: Hypertension type: essential hypertension Qualified Code(s): I10 - Essential (primary) hypertension Problem List Initiated/Reviewed/Updated: Yes Orders Last 24hrs: Active Orders 24 hr Category Date Time Status Patient Status [ADT] Stat ADT 04/25/18 19:13 Active Blood Glucose Check, Bedside [RC] ONETIME Care 04/25/18 15:29 Active Cardiac Monitoring [RC] . DIRECTED Care 04/25/18 15:29 Active EKG Documentation Completion [RC] STAT Care 04/25/18 15:29 Active Oxygen Therapy, ED [RC] ASDIRECTED Care 04/25/18 15:29 Active Pulse Oximetry [RC] ASDIRECTED Care 04/25/18 15:29 Active Regular Diet [DIET] Diet 04/26/18 Breakfast Active Ribs 2V w Chest Lt [CR] Stat Exams 04/25/18 15:33 Taken CULTURE URINE [RM] Stat Lab 04/25/18 17:50 Received LEVETIRACETAM, S [REF] Stat Lab 04/25/18 16:04 Received Acetaminophen [Tylenol] Med 04/25/18 20:48 Active 650 mg PO Q4H PRN Ondansetron [Zofran] Med 04/25/18 20:49 Active 4 mg IVPUSH Q6H PRN Sodium Chloride 0.9% [Normal Saline] 1,000 ml Med 04/25/18 21:00 Active IV ASDIRECTED Sodium Chloride 0.9% [Saline Flush] Med 04/25/18 15:30 Active 10 ml FLUSH ASDIRECTED PRN Sodium Chloride 0.9% [Saline Flush] Med 04/25/18 15:30 Active 2.5 ml FLUSH ASDIRECTED PRN cefTRIAXone [Rocephin] 1 gm Med 04/26/18 19:00 Active Sodium Chloride 0.9% [Normal Saline] 50 ml IV Q24H oxyCODONE Med 04/25/18 20:48 Active 5 mg PO Q4H PRN Saline Lock Insert [OM.PC] Stat Oth 04/25/18 15:29 Ordered Medication Orders Acetaminophen (Tylenol) 650 mg PO Q4H PRN PRN Reason: Pain/Fever Ceftriaxone Sodium 1 gm/ (Sodium Chloride) 50 mls @ 100 mls/hr IV Q24H WARREN Sodium Chloride (Normal Saline) 1,000 mls @ 75 mls/hr IV ASDIRECTED WARREN Last Admin: 04/25/18 22:00 Dose: 75 mls/hr Ondansetron HCl (Zofran) 4 mg IVPUSH Q6H PRN PRN Reason: Nausea/Vomiting Oxycodone HCl (Oxycodone) 5 mg PO Q4H PRN PRN Reason: Severe Pain Sodium Chloride (Saline Flush) 10 ml FLUSH ASDIRECTED PRN PRN Reason: Keep Vein Open Last Admin: 04/25/18 16:06 Dose: 10 ml Sodium Chloride (Saline Flush) 2.5 ml FLUSH ASDIRECTED PRN PRN Reason: Keep Vein Open Last Admin: 04/25/18 16:06 Dose: 2.5 ml Assessment/Plan Comment:: The patient is an 82-year-old lady who was admitted secondary to confusion, aggressive behavior and concern out of a urinary tract infection. Patient's family is not available at this time. The patient will be admitted to observation. I've ordered PTOT with regards to the patient's frequent falls. I' m concerned about the patient not been able to complete her ADLs. The patient also had the ciprofloxacin discontinued and she'll be kept on Rocephin IV 1 g every 24 hours. The patient will also be kept on regular diet as tolerated. The patient's other home medications have been continued. The patient may need evaluation for placement in a locked unit based on her current behavior. This however, may be a symptom of her urinary tract infection. The patient does not need DVT prophylaxis as she is currently taking Eliquis. I've ordered repeat laboratories in the morning.
[2018-04-26] MEDS ORDERED: Acetaminophen 500 MG Tab PO PRN (07:37)
[2018-04-26] MEDS: Levothyroxine 112 MCG Tab PO SCH (09:01)
[2018-04-26] MEDS: Apixaban 2.5 MG Tab PO SCH ×2 (09:02→20:41)
[2018-04-26] MEDS: Carvedilol 3.125 MG Tab PO SCH ×2 (09:02→20:41)
[2018-04-26] MEDS: Furosemide 20 MG Tab PO SCH (09:03)
[2018-04-26] MEDS: levETIRAcetam 500 MG Tab PO SCH ×2 (09:03→20:42)
[2018-04-26] MEDS: Losartan 50 MG Tab PO SCH (09:04)
[2018-04-26] MEDS: Cholecalciferol (Vitamin D3) 1,000 Unit Tab PO SCH (09:05)
[2018-04-26] MEDS: Escitalopram 10 MG Tab PO SCH (09:05)
[2018-04-26] MEDS: Docusate Sodium 100 MG Cap PO PRN (18:03)
[2018-04-26] MEDS: cefTRIAXone 1 GM in Premix Bag 1 BAG IV SCH (18:05)
[2018-04-26] MEDS: Sodium Chloride 0.9% 1,000 ML IV SCH (19:18)
[2018-04-26] MEDS: Ascorbic Acid 500 MG Tab PO SCH (20:41)
[2018-04-26] MEDS: Donepezil 5 MG Tab PO SCH (20:42)
--- NOTE | 2018-04-27 09:37 | PCM.PN ---
- General Info Date of Service: 04/27/18 Admission Dx/Problem (Free Text): Admission Diagnosis/Problem Admission Diagnosis/Problem Confusion Subjective Update: The patient is an 82-year-old lady who was admitted yesterday secondary to confusion. She was also somewhat altered mental yesterday. The patient has had fewer episodes of aggression. She is currently pending physical therapy and occupational therapy with regards to her overall physical decline. Family members not present with her. The patient has denied any pain. She thinks she is in [place], [place]. Functional Status: Reports: Pain Controlled - Review of Systems General: Reports: No Symptoms HEENT: Reports: No Symptoms Pulmonary: Reports: No Symptoms Cardiovascular: Reports: No Symptoms Gastrointestinal: Reports: No Symptoms Genitourinary: Reports: No Symptoms Musculoskeletal: Reports: No Symptoms Skin: Reports: No Symptoms Neurological: Reports: No Symptoms Psychiatric: Reports: No Symptoms - Patient Data Vitals - Most Recent: Last Vital Signs Temp 37.2 C 04/26/18 23:07 Pulse 64 04/26/18 23:07 Resp 20 04/26/18 23:07 BP 147/69 H 04/26/18 23:07 Pulse Ox 94 L 04/26/18 23:07 Weight - Most Recent: 69.456 kg I&O - Last 24 Hours: Intake & Output 04/26/18 04/27/18 04/27/18 22:59 06:59 14:59 Intake Total 1586 Output Total 700 Balance 886 Med Orders - Current: Current Medications Acetaminophen (Tylenol) 650 mg PO Q4H PRN PRN Reason: Pain/Fever Acetaminophen (Tylenol Extra Strength) 500 mg PO Q6H PRN PRN Reason: Pain Apixaban (Eliquis) 2.5 mg PO BID [facility] Last Admin: 04/26/18 20:41 Dose: 2.5 mg Ascorbic Acid (Vitamin C) 500 mg PO BID [facility] Last Admin: 04/26/18 20:41 Dose: 500 mg Carvedilol (Coreg) 3.125 mg PO BID [facility] Last Admin: 04/26/18 20:41 Dose: 3.125 mg Cholecalciferol (Vitamin D3) 5,000 units PO DAILY [facility] Last Admin: 04/26/18 09:05 Dose: 5,000 units Docusate Sodium (Colace) 100 mg PO BID PRN PRN Reason: Constipation Last Admin: 04/26/18 18:03 Dose: 100 mg Donepezil HCl (Aricept) 5 mg PO BEDTIME [facility] Last Admin: 04/26/18 20:42 Dose: 5 mg Escitalopram Oxalate (Lexapro) 10 mg PO DAILY [facility] Last Admin: 04/26/18 09:05 Dose: 10 mg Furosemide (Lasix) 10 mg PO QAM [facility] Last Admin: 04/26/18 09:03 Dose: 10 mg Ceftriaxone Sodium/Dextrose 1 (gm/ Premix) 50 mls @ 100 mls/hr IV Q24H [facility] Last Admin: 04/26/18 18:05 Dose: 100 mls/hr Sodium Chloride (Normal Saline) 1,000 mls @ 75 mls/hr IV ASDIRECTED [facility] Last Admin: 04/26/18 19:18 Dose: 75 mls/hr Levetiracetam (Keppra) 500 mg PO BID [facility] Last Admin: 04/26/18 20:42 Dose: 500 mg Levothyroxine Sodium (Levothyroxine) 112 mcg PO ACBREAKFAST [facility] Last Admin: 04/26/18 09:01 Dose: 112 mcg Losartan Potassium (Cozaar) 25 mg PO DAILY [facility] Last Admin: 04/26/18 09:04 Dose: 25 mg Ondansetron HCl (Zofran) 4 mg IVPUSH Q6H PRN PRN Reason: Nausea/Vomiting Oxycodone HCl (Oxycodone) 5 mg PO Q4H PRN PRN Reason: Severe Pain Sodium Chloride (Saline Flush) 10 ml FLUSH ASDIRECTED PRN PRN Reason: Keep Vein Open Last Admin: 04/25/18 16:06 Dose: 10 ml Sodium Chloride (Saline Flush) 2.5 ml FLUSH ASDIRECTED PRN PRN Reason: Keep Vein Open Last Admin: 04/25/18 16:06 Dose: 2.5 ml Discontinued Medications Sodium Chloride (Normal Saline) 500 mls @ 999 mls/hr IV STAT [facility] Last Admin: 04/25/18 16:06 Dose: 999 mls/hr Ceftriaxone Sodium/Dextrose 1 (gm/ Premix) 50 mls @ 100 mls/hr IV ONETIME ONE Stop: 04/25/18 19:36 Last Admin: 04/25/18 19:23 Dose: 100 mls/hr - Exam General: Alert, Cooperative, No Acute Distress. No: Oriented HEENT: Pupils Equal, Pupils Reactive Neck: Supple, Trachea Midline Lungs: Clear to Auscultation, Normal Respiratory Effort Cardiovascular: Regular Rate, Regular Rhythm GI/Abdominal Exam: Normal Bowel Sounds, No Distention (Female) Exam: Deferred Back Exam: Normal Inspection Extremities: Normal Inspection, No Pedal Edema Skin: Warm, Dry, Intact Neurological: No New Focal Deficit Psy/Mental Status: Alert - Problem List & Annotations (1) UTI (urinary tract infection) SNOMED Code(s): 54268945 Code(s): N39.0 - URINARY TRACT INFECTION, SITE NOT SPECIFIED Status: Acute Priority: High Current Visit: Yes Qualifiers: Urinary tract infection type: site unspecified Hematuria presence: without hematuria Qualified Code(s): N39.0 - Urinary tract infection, site not specified (2) Confusion SNOMED Code(s): 796373495 Code(s): R41.0 - DISORIENTATION, UNSPECIFIED Status: Acute Priority: High Current Visit: Yes (3) Chronic anticoagulation SNOMED Code(s): 091381561 Code(s): Z79.01 - CARE HOME (CURRENT) USE OF ANTICOAGULANTS Status: Chronic Priority: Medium Current Visit: Yes (4) Frequent falls SNOMED Code(s): 951625017 Code(s): R29.6 - REPEATED FALLS Status: Chronic Priority: Medium Current Visit: Yes (5) History of hemorrhagic cerebrovascular accident (CVA) with residual deficit SNOMED Code(s): 030955604736760 Code(s): I69.30 - UNSPECIFIED SEQUELAE OF CEREBRAL INFARCTION Status: Chronic Priority: Medium Current Visit: Yes (6) Hypothyroidism (acquired) SNOMED Code(s): 964055688 Code(s): E03.9 - HYPOTHYROIDISM, UNSPECIFIED Status: Chronic Priority: Medium Current Visit: Yes (7) Pacemaker SNOMED Code(s): 981329483 Code(s): Z95.0 - PRESENCE OF CARDIAC PACEMAKER Status: Chronic Priority: Medium Current Visit: Yes (8) Atrial fibrillation SNOMED Code(s): 92942361 Code(s): I48.91 - UNSPECIFIED ATRIAL FIBRILLATION Status: Chronic Priority: Medium Current Visit: Yes Qualifiers: Atrial fibrillation type: chronic Qualified Code(s): I48.2 - Chronic atrial fibrillation (9) Hypertension SNOMED Code(s): 35183233 Code(s): I10 - ESSENTIAL (PRIMARY) HYPERTENSION Status: Chronic Priority : Medium Current Visit: Yes Qualifiers: Hypertension type: essential hypertension Qualified Code(s): I10 - Essential (primary) hypertension - Problem List Review Problem List Initiated/Reviewed/Updated: Yes - My Orders Last 24 Hours: My Active Orders 04/26/18 09:00 Apixaban [Eliquis] 2.5 mg PO BID Carvedilol [Coreg] 3.125 mg PO BID Cholecalciferol (Vitamin D3) [Vitamin D3] 5,000 units PO DAILY Escitalopram [Lexapro] 10 mg PO DAILY Furosemide [Lasix] 10 mg PO QAM Losartan [Cozaar] 25 mg PO DAILY levETIRAcetam [Keppra] 500 mg PO BID 04/26/18 12:30 Docusate Sodium [Colace] 100 mg PO BID PRN 04/26/18 19:00 cefTRIAXone [Rocephin in Dextrose,Iso-Osm 1 GM/50 ML] 1 gm Premix Bag 1 bag IV Q24H 04/26/18 21:00 Ascorbic Acid [Vitamin C] 500 mg PO BID Donepezil [Aricept] 5 mg PO BEDTIME - Plan Plan:: The patient is an 82-year-old lady who had been admitted secondary to confusion and aggressive behavior and today the patient is overall improved. She is still not oriented to place or time. PTOT is currently pending. This was ordered secondary to the patient's frequent falls. The patient's urinary tract infection is improving and she'll be kept on Rocephin 1 g IV every 24 hours. She will also have her current diet as tolerated. The patient is currently taking Eliquis and this will be continued and she does not need DVT prophylaxis for this. The patient has been encouraged to ambulate as she can. The patient should be evaluated for possible long-term care and return to [place] possibly Saturday or Saturday.
[2018-04-27] MEDS: Carvedilol 3.125 MG Tab PO SCH ×2 (10:07→20:31)
[2018-04-27] MEDS: levETIRAcetam 500 MG Tab PO SCH ×2 (10:08→20:34)
[2018-04-27] MEDS: Losartan 50 MG Tab PO SCH (10:08)
[2018-04-27] MEDS: Escitalopram 10 MG Tab PO SCH (10:08)
[2018-04-27] MEDS: Furosemide 20 MG Tab PO SCH (10:08)
[2018-04-27] MEDS: Apixaban 2.5 MG Tab PO SCH ×2 (10:08→20:33)
[2018-04-27] MEDS: Levothyroxine 112 MCG Tab PO SCH (11:32)
[2018-04-27] MEDS: Cholecalciferol (Vitamin D3) 1,000 Unit Tab PO SCH (11:32)
[2018-04-27] MEDS: Ascorbic Acid 500 MG Tab PO SCH ×2 (11:32→20:33)
[2018-04-27] MEDS: cefTRIAXone 1 GM in Premix Bag 1 BAG IV SCH (18:00)
[2018-04-27] MEDS: Donepezil 5 MG Tab PO SCH (20:32)
[2018-04-27] MEDS: Sodium Chloride 0.9% 1,000 ML IV SCH (20:53)
[2018-04-28] MEDS: Levothyroxine 112 MCG Tab PO SCH (06:35)
[2018-04-28] MEDS: Cholecalciferol (Vitamin D3) 1,000 Unit Tab PO SCH (08:43)
[2018-04-28] MEDS: Docusate Sodium 100 MG Cap PO PRN (08:44)
[2018-04-28] MEDS: Carvedilol 3.125 MG Tab PO SCH (08:44)
[2018-04-28] MEDS: Furosemide 20 MG Tab PO SCH (08:45)
[2018-04-28] MEDS: Ascorbic Acid 500 MG Tab PO SCH (08:45)
[2018-04-28] MEDS: Apixaban 2.5 MG Tab PO SCH (08:45)
[2018-04-28] MEDS: Escitalopram 10 MG Tab PO SCH (08:45)
[2018-04-28] MEDS: Losartan 50 MG Tab PO SCH (08:46)
[2018-04-28] MEDS: levETIRAcetam 500 MG Tab PO SCH (08:49)
--- NOTE | 2018-04-28 09:17 | PCM.DCSUM1 ---
<Claudia Carter M - Last Filed: 04/28/18 09:31> Discharge Summary - Hospital Course Brief History: This 82-year-old female who is a resident at [facility] with pmh of afib, chronic anticoagulation, hemorrhagic stroke, and recurrent UTIs with confusion presented to the emergency department after concern for confusion as well as a history of more frequent falling. The patient is currently anticoagulated on Eliquis and imaging had been obtained on March. Imaging thus far is negative for acute findings. According to the patient's charting she has been more aggressive, verbally loud and has not been able to complete her activities of daily living while at the assisted. [facility] had been concerned about the patient wandering and likely will need to have placement and a locked unit. The patient today is somewhat confused. She is not sure why she is here. She has no memory of apparent events in the emergency department yesterday. 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 Patient's family is not with her at time of admission Also, according to charting the patient has been exhibiting bouts of paranoia. Her history and review of systems is not reliable. Diagnosis: Stroke: No - Discharge Data Discharge Date: 04/28/18 Discharge Disposition: Home, Self-Care 01 Condition: Good - Discharge Diagnosis/Problem(s) (1) Confusion SNOMED Code(s): 111447241 ICD Code: R41.0 - DISORIENTATION, UNSPECIFIED Status: Acute Priority: High Current Visit: Yes (2) UTI (urinary tract infection) SNOMED Code(s): 19440511 ICD Code: N39.0 - URINARY TRACT INFECTION, SITE NOT SPECIFIED Status: Acute Priority: High Current Visit: Yes Qualifiers: Urinary tract infection type: site unspecified Hematuria presence: without hematuria Qualified Code(s): N39.0 - Urinary tract infection, site not specified (3) Atrial fibrillation SNOMED Code(s): 18673900 ICD Code: I48.91 - UNSPECIFIED ATRIAL FIBRILLATION Status: Chronic Priority: Medium Current Visit: Yes Qualifiers: Atrial fibrillation type: chronic Qualified Code(s): I48.2 - Chronic atrial fibrillation (4) Chronic anticoagulation SNOMED Code(s): 243617987 ICD Code: Z79.01 - SNF (CURRENT) USE OF ANTICOAGULANTS Status: Chronic Priority: Medium Current Visit: Yes (5) Frequent falls SNOMED Code(s): 421596352 ICD Code: R29.6 - REPEATED FALLS Status: Chronic Priority: Medium Current Visit: Yes (6) History of hemorrhagic cerebrovascular accident (CVA) with residual deficit SNOMED Code(s): 103116307483083 ICD Code: I69.30 - UNSPECIFIED SEQUELAE OF CEREBRAL INFARCTION Status: Chronic Priority: Medium Current Visit: Yes (7) Hypertension SNOMED Code(s): 58079458 ICD Code: I10 - ESSENTIAL (PRIMARY) HYPERTENSION Status: Chronic Priority : Medium Current Visit: Yes Qualifiers: Hypertension type: essential hypertension Qualified Code(s): I10 - Essential (primary) hypertension (8) Hypothyroidism (acquired) SNOMED Code(s): 511025053 ICD Code: E03.9 - HYPOTHYROIDISM, UNSPECIFIED Status: Chronic Priority: Medium Current Visit: Yes (9) Pacemaker SNOMED Code(s): 870095944 ICD Code: Z95.0 - PRESENCE OF CARDIAC PACEMAKER Status: Chronic Priority : Medium Current Visit: Yes - Patient Summary/Data Consults: Consultations 04/26/18 07:41 Consult to Physical Therapy [PT Evaluation and Treatment] [CONS] Routine OT Evaluation and Treatment [CONS] Routine - Patient Instructions Diet: Heart Healthy Diet Activity: As Tolerated Showering/Bathing: May Shower Notify Provider of: Fever, Increased Pain, Swelling and Redness, Drainage, Nausea and/or Vomiting Other/Special Instructions: PT/OT to evaluate and treat. If confusion is noted , please obtain UA and notify semiconductor testing group leader provider. - Discharge Plan *PRESCRIPTION DRUG MONITORING PROGRAM REVIEWED*: Not Applicable *COPY OF PRESCRIPTION DRUG MONITORING REPORT IN PATIENT RAS: Not Applicable Prescriptions/Med Rec: Cefdinir 300 mg PO BID #10 capsule Home Medications: Home Meds Acetaminophen 500 mg PO Q6H PRN 04/24/18 [History] Apixaban [Eliquis] 2.5 mg PO BID 04/24/18 [History] Aspirin 81 mg PO DAILY 04/24/18 [History] Carvedilol 3.125 mg PO BID 04/24/18 [History] Cholecalciferol (Vitamin D3) [Vitamin D3] 5,000 unit PO DAILY 04/24/18 [History] Cyanocobalamin (Vitamin B-12) [B-12] 1,000 mcg PO DAILY 04/24/18 [History] Escitalopram [Lexapro] 10 mg PO DAILY 04/24/18 [History] Furosemide 10 mg PO QAM 04/24/18 [History] Levothyroxine 112 mcg PO ACBREAKFAST 04/24/18 [History] Losartan [Cozaar] 25 mg PO DAILY 04/24/18 [History] Lutein/Minerals/Vit A,C & E [Ocuvite] 1 tab PO DAILY 04/24/18 [History] Multivitamin [One Daily] 1 each PO DAILY 04/24/18 [History] levETIRAcetam [Keppra] 500 mg PO BID 04/24/18 [History] Cranberry Fruit Extract/Vit C [Cvs Cranberry-Vitamin C Sfgl] 1 each PO DAILY 03/15 [History] Cefdinir 300 mg PO BID #10 capsule 04/28/18 [Rx] Oxygen Therapy Mode: Room Air Patient Handouts: Cefdinir capsules, Confusion - Discharge Summary/Plan Comment DC Time >30 min.: No Discharge Summary/Plan Comment: Discharge Diagnoses: UTI Confusion- resolved Afib Chronic anticoagulation Hx hemorrhagic stroke Dementia Anahi was admitted secondary to confusion and suspected UTI. She was treated with Rocephin for UTI and steadily improved in cognition. 2 daughters in the room today who feel she is back to her baseline. She is alert and oriented x 2, unaware of date/time. Daughters reports since stroke, she has not been able to tell time or the year. They feel she is back at her baseline. [facility] has moved her room to the locked unit so she will be better monitored. Ciprofloxacin will be stopped, Cefdinir will be continued for another 5 days. UC returned with mixed shanda greater than 100,000. Family is requesting standing order for UAs if she starts getting confusion or disoriented. She has no other concerns today. Will continue all other home medications. She will have follow up with PCP in 1 week, Dr Diallo. She is to return to ED or clinic sooner if concerns arise. - General Info Date of Service: 04/28/18 Admission Dx/Problem (Free Text: Admission Diagnosis/Problem Admission Diagnosis/Problem Confusion Subjective Update: Sitting up in recliner, alert and oriented x2, at baseline. Daughters at bedside report she is at baseline and doing better. She denies chest pain or SOB. NO abdominal pain and no urinary symptoms. Tolerating diet well, daughters report she could drink more. Functional Status: Reports: Pain Controlled, Tolerating Diet, Ambulating, Urinating - Review of Systems General: Reports: Weakness (generalized.). Denies: Fever HEENT: Reports: No Symptoms. Denies: Headaches, Sore Throat, Visual Changes Pulmonary: Reports: No Symptoms. Denies: Shortness of Breath Cardiovascular: Reports: No Symptoms. Denies: Chest Pain Gastrointestinal: Reports: No Symptoms. Denies: Abdominal Pain, Diarrhea, Nausea, Vomiting Genitourinary: Reports: No Symptoms. Denies: Dysuria, Frequency, Burning Musculoskeletal: Reports: No Symptoms. Denies: Neck Pain Skin: Reports: No Symptoms Neurological: Reports: No Symptoms Psychiatric: Reports: No Symptoms - Patient Data Vitals - Most Recent: Last Vital Signs Temp 97.7 F 04/28/18 07:17 Pulse 61 04/28/18 08:44 Resp 14 04/28/18 07:17 BP 180/90 H 04/28/18 08:46 Pulse Ox 95 04/28/18 07:17 Weight - Most Recent: 69.456 kg I&O - Last 24 hours: Intake & Output 04/27/18 04/28/18 04/28/18 22:59 06:59 14:59 Intake Total 1668 450 Output Total 1200 600 Balance 468 -150 Lab Results - Last 24 hrs: Laboratory Results - last 24 hr 04/28/18 04/28/18 Range/Units 05:33 05:33 WBC 4.38 (4.0-11.0) K/uL RBC 3.77 L (4.30-5.90) M/uL Hgb 11.8 L (12.0-16.0) g/dL Hct 34.7 L (36.0-46.0) % MCV 92.0 (80.0-98.0) fL MCH 31.3 (27.0-32.0) pg MCHC 34.0 (31.0-37.0) g/dL RDW Std Deviation 44.7 (28.0-62.0) fl RDW Coeff of Tay 13 (11.0-15.0) % Plt Count 178 (150-400) K/uL MPV 9.70 (7.40-12.00) fL Neut % (Auto) 47.1 L (48.0-80.0) % Lymph % (Auto) 34.9 (16.0-40.0) % Boyle % (Auto) 13.2 (0.0-15.0) % Eos % (Auto) 4.3 (0.0-7.0) % Baso % (Auto) 0.5 (0.0-1.5) % Neut # (Auto) 2.1 (1.4-5.7) K/uL Lymph # (Auto) 1.5 (0.6-2.4) K/uL Boyle # (Auto) 0.6 (0.0-0.8) K/uL Eos # (Auto) 0.2 (0.0-0.7) K/uL Baso # (Auto) 0.0 (0.0-0.1) K/uL Nucleated RBC % 0.0 /100WBC Nucleated RBCs # 0 K/uL Sodium 144 (136-145) mmol/L Potassium 3.6 (3.5-5.1) mmol/L Chloride 109 H (98-107) mmol/L Carbon Dioxide 26.6 (21.0-32.0) mmol/L BUN 18 (7.0-18.0) mg/dL Creatinine 0.9 (0.6-1.0) mg/dL Est Cr Clr Drug Dosing 38.49 mL/min Estimated GFR (MDRD) 59.7 ml/min Glucose 89 (74-106) mg/dL Calcium 8.7 (8.5-10.1) mg/dL Magnesium 2.0 (1.8-2.4) mg/dL WISAM Results - Last 24 hrs: Microbiology 04/25/18 17:50 Urine Culture - Final Urine, Clean Catch MIXED SHANDA >100,000 CFU/ML Med Orders - Current: Current Medications Acetaminophen (Tylenol) 650 mg PO Q4H PRN PRN Reason: Pain/Fever Acetaminophen (Tylenol Extra Strength) 500 mg PO Q6H PRN PRN Reason: Pain Apixaban (Eliquis) 2.5 mg PO BID [facility] Last Admin: 04/28/18 08:45 Dose: 2.5 mg Ascorbic Acid (Vitamin C) 500 mg PO BID [facility] Last Admin: 04/28/18 08:45 Dose: 500 mg Carvedilol (Coreg) 3.125 mg PO BID [facility] Last Admin: 04/28/18 08:44 Dose: 3.125 mg Cholecalciferol (Vitamin D3) 5,000 units PO DAILY [facility] Last Admin: 04/28/18 08:43 Dose: 5,000 units Docusate Sodium (Colace) 100 mg PO BID PRN PRN Reason: Constipation Last Admin: 04/28/18 08:44 Dose: 100 mg Donepezil HCl (Aricept) 5 mg PO BEDTIME [facility] Last Admin: 04/27/18 20:32 Dose: 5 mg Escitalopram Oxalate (Lexapro) 10 mg PO DAILY [facility] Last Admin: 04/28/18 08:45 Dose: 10 mg Furosemide (Lasix) 10 mg PO QAM [facility] Last Admin: 04/28/18 08:45 Dose: 10 mg Ceftriaxone Sodium/Dextrose 1 (gm/ Premix) 50 mls @ 100 mls/hr IV Q24H [facility] Last Admin: 04/27/18 18:00 Dose: 100 mls/hr Levetiracetam (Keppra) 500 mg PO BID [facility] Last Admin: 04/28/18 08:49 Dose: 500 mg Levothyroxine Sodium (Levothyroxine) 112 mcg PO ACBREAKFAST [facility] Last Admin: 04/28/18 06:35 Dose: 112 mcg Losartan Potassium (Cozaar) 25 mg PO DAILY [facility] Last Admin: 04/28/18 08:46 Dose: 25 mg Ondansetron HCl (Zofran) 4 mg IVPUSH Q6H PRN PRN Reason: Nausea/Vomiting Oxycodone HCl (Oxycodone) 5 mg PO Q4H PRN PRN Reason: Severe Pain Sodium Chloride (Saline Flush) 10 ml FLUSH ASDIRECTED PRN PRN Reason: Keep Vein Open Last Admin: 04/25/18 16:06 Dose: 10 ml Sodium Chloride (Saline Flush) 2.5 ml FLUSH ASDIRECTED PRN PRN Reason: Keep Vein Open Last Admin: 04/25/18 16:06 Dose: 2.5 ml Discontinued Medications Sodium Chloride (Normal Saline) 500 mls @ 999 mls/hr IV STAT [facility] Last Admin: 04/25/18 16:06 Dose: 999 mls/hr Ceftriaxone Sodium/Dextrose 1 (gm/ Premix) 50 mls @ 100 mls/hr IV ONETIME ONE Stop: 04/25/18 19:36 Last Admin: 04/25/18 19:23 Dose: 100 mls/hr Sodium Chloride (Normal Saline) 1,000 mls @ 75 mls/hr IV ASDIRECTED [facility] Last Admin: 04/27/18 20:53 Dose: 75 mls/hr - Exam General: Reports: Alert, Oriented (x2), Cooperative, No Acute Distress Lungs: Reports: Clear to Auscultation, Normal Respiratory Effort Cardiovascular: Reports: Regular Rate, Regular Rhythm GI/Abdominal Exam: Normal Bowel Sounds, Soft, Non-Tender, No Organomegaly Extremities: Normal Inspection, Normal Range of Motion, Non-Tender, No Pedal Edema Wound/Incisions: Reports: Healing Well Neurological: Reports: No New Focal Deficit Psy/Mental Status: Reports: Alert, Normal Affect, Normal Mood <Balaji Gama - Last Filed: 04/28/18 11:34> Discharge Summary - Hospital Course Free Text/Narrative:: I have examined the patient independently of Claudia Carter CNP and have discussed the case with her. I have reviewed and agree with the findings and plan of care as outlined for this patient. Please see orders. - Discharge Diagnosis/Problem(s) (1) UTI (urinary tract infection) SNOMED Code(s): 94264455 ICD Code: N39.0 - URINARY TRACT INFECTION, SITE NOT SPECIFIED Status: Acute Priority: High Current Visit: Yes Qualifiers: Urinary tract infection type: site unspecified Hematuria presence: without hematuria Qualified Code(s): N39.0 - Urinary tract infection, site not specified (2) Confusion SNOMED Code(s): 099917565 ICD Code: R41.0 - DISORIENTATION, UNSPECIFIED Status: Acute Priority: High Current Visit: Yes (3) Chronic anticoagulation SNOMED Code(s): 049917829 ICD Code: Z79.01 - MANAGER MUSIC (CURRENT) USE OF ANTICOAGULANTS Status: Chronic Priority: Medium Current Visit: Yes (4) Frequent falls SNOMED Code(s): 843625546 ICD Code: R29.6 - REPEATED FALLS Status: Chronic Priority: Medium Current Visit: Yes (5) History of hemorrhagic cerebrovascular accident (CVA) with residual deficit SNOMED Code(s): 694699081001278 ICD Code: I69.30 - UNSPECIFIED SEQUELAE OF CEREBRAL INFARCTION Status: Chronic Priority: Medium Current Visit: Yes (6) Hypothyroidism (acquired) SNOMED Code(s): 223770757 ICD Code: E03.9 - HYPOTHYROIDISM, UNSPECIFIED Status: Chronic Priority: Medium Current Visit: Yes (7) Pacemaker SNOMED Code(s): 231208743 ICD Code: Z95.0 - PRESENCE OF CARDIAC PACEMAKER Status: Chronic Priority : Medium Current Visit: Yes (8) Atrial fibrillation SNOMED Code(s): 64172757 ICD Code: I48.91 - UNSPECIFIED ATRIAL FIBRILLATION Status: Chronic Priority: Medium Current Visit: Yes Qualifiers: Atrial fibrillation type: chronic Qualified Code(s): I48.2 - Chronic atrial fibrillation (9) Hypertension SNOMED Code(s): 93143016 ICD Code: I10 - ESSENTIAL (PRIMARY) HYPERTENSION Status: Chronic Priority : Medium Current Visit: Yes Qualifiers: Hypertension type: essential hypertension Qualified Code(s): I10 - Essential (primary) hypertension - Patient Summary/Data Consults: Consultations 04/26/18 07:41 Consult to Physical Therapy [PT Evaluation and Treatment] [CONS] Routine OT Evaluation and Treatment [CONS] Routine - Patient Data Vitals - Most Recent: Last Vital Signs Temp 36.7 C 04/28/18 11:19 Pulse 60 04/28/18 11:19 Resp 16 04/28/18 11:19 BP 193/85 H 04/28/18 11:19 Pulse Ox 95 04/28/18 11:19 I&O - Last 24 hours: Intake & Output 04/27/18 04/28/18 04/28/18 22:59 06:59 14:59 Intake Total 1668 450 Output Total 1200 600 Balance 468 -150 Lab Results - Last 24 hrs: Laboratory Results - last 24 hr 04/28/18 04/28/18 Range/Units 05:33 05:33 WBC 4.38 (4.0-11.0) K/uL RBC 3.77 L (4.30-5.90) M/uL Hgb 11.8 L (12.0-16.0) g/dL Hct 34.7 L (36.0-46.0) % MCV 92.0 (80.0-98.0) fL MCH 31.3 (27.0-32.0) pg MCHC 34.0 (31.0-37.0) g/dL RDW Std Deviation 44.7 (28.0-62.0) fl RDW Coeff of Tay 13 (11.0-15.0) % Plt Count 178 (150-400) K/uL MPV 9.70 (7.40-12.00) fL Neut % (Auto) 47.1 L (48.0-80.0) % Lymph % (Auto) 34.9 (16.0-40.0) % Boyle % (Auto) 13.2 (0.0-15.0) % Eos % (Auto) 4.3 (0.0-7.0) % Baso % (Auto) 0.5 (0.0-1.5) % Neut # (Auto) 2.1 (1.4-5.7) K/uL Lymph # (Auto) 1.5 (0.6-2.4) K/uL Boyle # (Auto) 0.6 (0.0-0.8) K/uL Eos # (Auto) 0.2 (0.0-0.7) K/uL Baso # (Auto) 0.0 (0.0-0.1) K/uL Nucleated RBC % 0.0 /100WBC Nucleated RBCs # 0 K/uL Sodium 144 (136-145) mmol/L Potassium 3.6 (3.5-5.1) mmol/L Chloride 109 H (98-107) mmol/L Carbon Dioxide 26.6 (21.0-32.0) mmol/L BUN 18 (7.0-18.0) mg/dL Creatinine 0.9 (0.6-1.0) mg/dL Est Cr Clr Drug Dosing 38.49 mL/min Estimated GFR (MDRD) 59.7 ml/min Glucose 89 (74-106) mg/dL Calcium 8.7 (8.5-10.1) mg/dL Magnesium 2.0 (1.8-2.4) mg/dL WISAM Results - Last 24 hrs: Microbiology 04/25/18 17:50 Urine Culture - Final Urine, Clean Catch MIXED SHANDA >100,000 CFU/ML Med Orders - Current: Current Medications Acetaminophen (Tylenol) 650 mg PO Q4H PRN PRN Reason: Pain/Fever Acetaminophen (Tylenol Extra Strength) 500 mg PO Q6H PRN PRN Reason: Pain Apixaban (Eliquis) 2.5 mg PO BID [facility] Last Admin: 04/28/18 08:45 Dose: 2.5 mg Ascorbic Acid (Vitamin C) 500 mg PO BID [facility] Last Admin: 04/28/18 08:45 Dose: 500 mg Carvedilol (Coreg) 3.125 mg PO BID [facility] Last Admin: 04/28/18 08:44 Dose: 3.125 mg Cholecalciferol (Vitamin D3) 5,000 units PO DAILY [facility] Last Admin: 04/28/18 08:43 Dose: 5,000 units Docusate Sodium (Colace) 100 mg PO BID PRN PRN Reason: Constipation Last Admin: 04/28/18 08:44 Dose: 100 mg Donepezil HCl (Aricept) 5 mg PO BEDTIME [facility] Last Admin: 04/27/18 20:32 Dose: 5 mg Escitalopram Oxalate (Lexapro) 10 mg PO DAILY [facility] Last Admin: 04/28/18 08:45 Dose: 10 mg Furosemide (Lasix) 10 mg PO QAM [facility] Last Admin: 04/28/18 08:45 Dose: 10 mg Ceftriaxone Sodium/Dextrose 1 (gm/ Premix) 50 mls @ 100 mls/hr IV Q24H [facility] Last Admin: 04/27/18 18:00 Dose: 100 mls/hr Levetiracetam (Keppra) 500 mg PO BID [facility] Last Admin: 04/28/18 08:49 Dose: 500 mg Levothyroxine Sodium (Levothyroxine) 112 mcg PO ACBREAKFAST [facility] Last Admin: 04/28/18 06:35 Dose: 112 mcg Losartan Potassium (Cozaar) 25 mg PO DAILY [facility] Last Admin: 04/28/18 08:46 Dose: 25 mg Ondansetron HCl (Zofran) 4 mg IVPUSH Q6H PRN PRN Reason: Nausea/Vomiting Oxycodone HCl (Oxycodone) 5 mg PO Q4H PRN PRN Reason: Severe Pain Sodium Chloride (Saline Flush) 10 ml FLUSH ASDIRECTED PRN PRN Reason: Keep Vein Open Last Admin: 04/25/18 16:06 Dose: 10 ml Sodium Chloride (Saline Flush) 2.5 ml FLUSH ASDIRECTED PRN PRN Reason: Keep Vein Open Last Admin: 04/25/18 16:06 Dose: 2.5 ml Discontinued Medications Sodium Chloride (Normal Saline) 500 mls @ 999 mls/hr IV STAT [facility] Last Admin: 04/25/18 16:06 Dose: 999 mls/hr Ceftriaxone Sodium/Dextrose 1 (gm/ Premix) 50 mls @ 100 mls/hr IV ONETIME ONE Stop: 04/25/18 19:36 Last Admin: 04/25/18 19:23 Dose: 100 mls/hr Sodium Chloride (Normal Saline) 1,000 mls @ 75 mls/hr IV ASDIRECTED [facility] Last Admin: 04/27/18 20:53 Dose: 75 mls/hr
--- NOTE | 2018-04-28 09:39 | CR ---
EXAM DATE: 04/25/18 PATIENT'S AGE: 82 Patient: MANISHA DELAROSA Facility: [place], [place] Site . Site : [id number] Study: XRay Chest [id number] 5:23:44 PM Ordering Physician: Manjit Vital Final Report: Indication: Patient with dementia. Fell yesterday. Technique: An AP view of the chest was obtained. Two views of the left ribs were obtained. Comparison: April 24, 2018. Findings: A left-sided pacemaker is identified. The heart is borderline in size. The right hemidiaphragm is elevated. No infiltrate, pleural effusion, or pneumothorax is identified. No displaced left rib fractures are identified. Please note the lower ribs were not included on the study. Impression: No displaced left rib fractures. Dictated by Shira Ray MD @ Apr 25 2018 5:43PM (Electronic Signature) Report Signed by Proxy. SANTHOSH
== END 2018-04-28 13:22 | disposition home or self-care (01) ==
LOC: MW.ED 15:04 → MW.MS 19:13
PROVIDERS: ADMIT Internal Medicine; ATTEND Internal Medicine
DX: R41.0 Disorientation, unspecified (principal); N39.0 Urinary tract infection, site not specified; R29.6 Repeated falls; I10 Essential (primary) hypertension; I48.2 Chronic atrial fibrillation; I69.30 Unspecified sequelae of cerebral infarction; E78.00 Pure hypercholesterolemia, unspecified; E03.9 Hypothyroidism, unspecified; F03.90 Unspecified dementia, unspecified severity, without behavioral disturbance, psychotic disturbance, mood disturbance, and anxiety; Z95.0 Presence of cardiac pacemaker; Z79.2 Long term (current) use of antibiotics; Z79.01 Long term (current) use of anticoagulants; Z79.82 Long term (current) use of aspirin; Z79.899 Other long term (current) drug therapy
CPT/HCPCS: 36415; 70450; 71101; 80048; 80053; 80177; 81001; 83735; 84443; 84484; 85025; 85610; 87086; 93005; 96361; 96365; 97161; 99285; A9270; J0696; J7040; 96366; 96376; 99284; G0378

== ENCOUNTER 2018-05-08 01:10 | Observation (INO) | payer MEDICARE, BC ==
[2018-05-08] MEDS ORDERED: Sodium Chloride 0.9% 10 ML Syringe FLUSH PRN (01:28)
[2018-05-08] MEDS ORDERED: Sodium Chloride 0.9% 2.5 ML Syringe FLUSH PRN (01:28)
[2018-05-08] MEDS ORDERED: Sodium Chloride 0.9% 1,000 ML IV SCH (01:30)
--- NOTE | 2018-05-08 01:38 | EDM.PDOC ---
ED HPI GENERAL MEDICAL PROBLEM - General Chief Complaint: Abdominal Pain Stated Complaint: REZA PT Time Seen by Provider: 05/08/18 01:24 - History of Present Illness INITIAL COMMENTS - FREE TEXT/NARRATIVE: HISTORY AND PHYSICAL: History of present illness: The patient is 82-year-old female with a history of hypertension hypothyroidism pacemaker A. fib/flutter osteoarthritis, right hemorrhagic occipitoparietal stroke with craniotomy in November which was operated on in [place] and who was seen here Apr 24 after a fall and was evaluated and sent back home. She returned on April 25 and I was the provider taking care of her for acceleration in her confusion. Family at that time said that she was having a 3 to four-week history waxing and waning confusion and alteration in mental status and mood swings and seemed to have accelerated over the 24 hours from being seen on Apr 24 to April 25. The nursing plant engineering supervisor at [facility] was concerned about her because they had her on their main unit after her fall the day before and wanted to move her to their locked unit because she was wandering with confusion and was being verbally and physically aggressive with staff and other residents, which again was accelerated from the episodic symptoms they had seen the prior 3 weeks. At that point I did a full workup and she had signs of a recurrent UTI and was admitted for observation. Son had told me on my interview of him that she would have episodes of paranoia and confusion alternating with more lucid state but that he had noticed a progressive decline in her overall baseline mental status over the prior 3 weeks. This sudden acceleration over the 24 hours was new. The patient was not discharged home until April 28 and was treated for a UTI and seemed to improve in her mental status although never quite back to her original baseline. She was to follow-up with Dr. Diallo and was sent back to [facility]. She had quickly accelerated from home self-care to [facility] over a very short period of time and the family was very concerned about that. She is on Eliquis for her A. fib A- flutter and is also on Keppra. [facility] called us this evening saying that the patient was having abdominal pain and hypertension. They did not describe any new mental status changes. On arrival here, the family brought her by private car, she seems very decreased with her alertness and awareness and has depressed mental status. Her [id number] at bedside says that this is typical of her in the evening and she will also have episodes similar to this throughout the day. They last saw her about 8 PM and she seemed to be more talkative and interactive but [id number] says that is not unusual for her to be as we are seeing her in the evenings before bed. In the ED the patient does not complain of anything and only answers simple questions. Daughter-in- law at bedside said that they see this change in the evenings after she gets her evening meds but she is not taking anything that is sedating according to the med list I was sent. She also has been using a walker in the near past but the [id number] is saying that even now she can barely get out of bed and ambulate and this has been a progressive and quick decline over the last 1 week. Family is concerned about new neuro insults or events but they have not noticed any speech changes or facial droop or any new focal weakness. They tell me that Dr. Diallo did see the patient and that they are always concerned that she has any UTI as this seems to be linked with alteration or worsening of her mental status. The Shahzad that she did eat earlier today she has not had any vomiting or any other systemic complaints. The patient is a code 3 status Review of systems: As per history of present illness and below otherwise all systems reviewed and negative. Past medical history: As per history of present illness and as reviewed below otherwise noncontributory. Surgical history: As per history of present illness and as reviewed below otherwise noncontributory. Social history: No reported history of drug or alcohol abuse. Family history: As per history of present illness and as reviewed below otherwise noncontributory. 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 She does talk but mostly mumbles and can answer simple questions. She is maintaining her airway and is in no distress. Vital signs are noted by me HEENT: Atraumatic, normocephalic, pupils reactive with right slightly bigger than left, negative for conjunctival pallor or scleral icterus, mucous membranes moist, throat clear, neck supple, nontender, trachea midline. Lungs: Clear to auscultation, breath sounds equal bilaterally, chest nontender. Poor effort but there is no wheezing or stridor or work of breathing Heart: S1S2, regular rate and rhythm no overt murmurs are appreciated Abdomen: Soft, nondistended, nontender. Bowel sounds are hypoactive and there is no tympany on percussion and on deep palpation there is actually no tenderness rebound or guarding on my examination. Negative for masses or hepatosplenomegaly. Pelvis: Stable nontender. Genitourinary: Deferred. Rectal: Deferred. Extremities: Atraumatic, negative for cords or calf pain. Neurovascular unremarkable. Patient has trace pedal edema bilaterally but no leg asymmetry. There are no palpable bony deformities appreciated in the extremities Neuro: Patient is drowsy but does respond to painful stimuli and can follow some simple commands. She has generalized weakness throughout with a motor of 2/ 5 in the lower extremities and 2-3 and the upper extremities with a slightly that her manager contract on the right than on the left. Sensation appears to be intact and neuro exam is difficult as the patient is so drowsy. She has no evidence of any tremor . Exam nonfocal. Skin: Turgor is slightly diminished and she has an overall pallor appearance but there are no overt rashes or lesions. Diagnostics: EKG x 2 CBC CMP amylase lipase INR troponin lactic acid TSH chest x-ray UA with reflex culture CT scan of the head abdomen and pelvis Therapeutics: IV O2 monitor, gentle IV fluids Rocephin Repeat blood pressure and pulse after labetalol is 197/75 with a heart rate of 62. In looking at her discharge summary on April 29 her discharge blood pressure was 180/90 and I'm comfortable with this being close to her baseline. The tele-radiologist has contacted me and the patient is status post right parietal craniotomy and there is a new acute intraparenchymal hematoma deep to the craniotomy site. There is some small amount of surrounding edema and there is extension of the hemorrhage into the dependent portion of the lateral ventricles. The ventricular size is stable and there is a 3 mm midline shift to the left. This CT is compared to the one that I performed on April 25. I've shown the CT scan of the head to the son and I discussed with him at length options. At this point whether is preventing us from going to [place] where she had her original surgery and I can go to [place]. Flight team is on standby I discussed with him how aggressive he wants to be with this and does he want a neurosurgeon to evaluate her for possible repeat surgery and also reversal of her anticoagulation. We currently do not have the new treatment for reversal of Eliquis, Andex Xa, but we do have PCC as well as tranexamic acid. I will discuss reversal with again with the son. Per [facility] the patient has not had any falls that they are aware of. The son is also made aware of this conversation. Patient is resting comfortably and maintaining her airway and is in no distress. 0331: After lengthy discussion with the son at bedside he wants to on her the patient's code 3 status and not fly her to [facility] in [place] for neurosurgical intervention and care and he wants to not give any reversal agents here and wants to initiate comfort measures 0337: I discussed this case with Dr. Pena and he accepts the patient for observation admission as a code 3 status/DNR and is aware of the family's decision to hold that and not transfer or reverse her anticoagulation. I will place her on telemetry. He will discuss with them in the morning extent of the care that they would like and plans for disposition Critical care time excluding procedures: 35min Impression: Progressive confusion and altered mental status, new acute intraparenchymal hematoma with history of craniotomy right parietal--- code 3 status History of chronic anticoagulation with Eliquis and ASA Abdominal pain with constipation Recurrent bacteriuria with history of UTIs Definitive disposition and diagnosis as appropriate pending reevaluation and review of above. Abdomen Pain Score (Numeric/FACES): 0 - Related Data Allergies Allergy/AdvReac Type Severity Reaction Status Date / Time No Known Allergies Allergy Verified 05/08/18 01:23 Home Meds: Home Meds Acetaminophen 500 mg PO Q6H PRN 04/24/18 [History] Apixaban [Eliquis] 2.5 mg PO BID 04/24/18 [History] Aspirin 81 mg PO DAILY 04/24/18 [History] Carvedilol 3.125 mg PO BID 04/24/18 [History] Cholecalciferol (Vitamin D3) [Vitamin D3] 5,000 unit PO DAILY 04/24/18 [History] Cyanocobalamin (Vitamin B-12) [B-12] 1,000 mcg PO DAILY 04/24/18 [History] Escitalopram [Lexapro] 10 mg PO DAILY 04/24/18 [History] Furosemide 10 mg PO QAM 04/24/18 [History] Levothyroxine 112 mcg PO ACBREAKFAST 04/24/18 [History] Losartan [Cozaar] 25 mg PO DAILY 04/24/18 [History] Lutein/Minerals/Vit A,C & E [Ocuvite] 1 tab PO DAILY 04/24/18 [History] Multivitamin [One Daily] 1 each PO DAILY 04/24/18 [History] levETIRAcetam [Keppra] 500 mg PO BID 04/24/18 [History] Cranberry Fruit Extract/Vit C [Cvs Cranberry-Vitamin C Sfgl] 1 each PO DAILY 03/15 [History] Past Medical History HEENT History: Reports: Impaired Vision Cardiovascular History: Reports: Afib, High Cholesterol, Hypertension, Pacemaker Gastrointestinal History: Reports: Chronic Constipation Genitourinary History: Reports: UTI, Recurrent Musculoskeletal History: Reports: Osteoarthritis Neurological History: Reports: CVA Other Neuro History: hemoragic CVA Psychiatric History: Reports: Dementia Endocrine/Metabolic History: Reports: Hypothyroidism - Infectious Disease History Infectious Disease History: Reports: None - Past Surgical History Head Surgeries/Procedures: Reports: Craniotomy HEENT Surgical History: Reports: None GI Surgical History: Reports: None Female Surgical History: Reports: None Endocrine Surgical History: Reports: None Musculoskeletal Surgical History: Reports: Knee Replacement Other Musculoskeletal Surgeries/Procedures:: bilateral knee replacement Social & Family History - Family History Family Medical History: Noncontributory - Caffeine Use Caffeine Use: Reports: None - Living Situation & Occupation Living situation: Reports: , Extended Care Facility Occupation: Retired ED ROS GENERAL - Review of Systems Review Of Systems: ROS reveals no pertinent complaints other than HPI. ED EXAM, GENERAL - Physical Exam Exam: See Below (See dictation) Course - Vital Signs Last Recorded V/S: Last Vital Signs Temp 36.5 C 05/08/18 03:16 Pulse 77 05/08/18 03:16 Resp 16 05/08/18 03:16 BP 191/76 H 05/08/18 03:16 Pulse Ox 93 L 05/08/18 03:16 - Orders/Labs/Meds Orders: Active Orders 24 hr Category Date Time Status Blood Glucose Check, Bedside [RC] ONETIME Care 05/08/18 01:27 Active Cardiac Monitoring [RC] . DIRECTED Care 05/08/18 01:27 Active EKG Documentation Completion [RC] STAT Care 05/08/18 01:27 Active EKG Documentation Completion [RC] STAT Care 05/08/18 03:05 Active Oxygen Therapy, ED [RC] ASDIRECTED Care 05/08/18 01:27 Active Pulse Oximetry [RC] ASDIRECTED Care 05/08/18 01:27 Active CULTURE URINE [] Stat Lab 05/08/18 02:00 Received Sodium Chloride 0.9% [Normal Saline] 1,000 ml Med 05/08/18 01:30 Active IV ASDIRECTED Sodium Chloride 0.9% [Saline Flush] Med 05/08/18 01:28 Active 10 ml FLUSH ASDIRECTED PRN Sodium Chloride 0.9% [Saline Flush] Med 05/08/18 01:28 Active 2.5 ml FLUSH ASDIRECTED PRN Saline Lock Insert [OM.PC] Stat Oth 05/08/18 01:27 Ordered Medication Orders Sodium Chloride (Normal Saline) 1,000 mls @ 125 mls/hr IV ASDIRECTED WARREN Last Admin: 05/08/18 02:16 Dose: 125 mls/hr Sodium Chloride (Saline Flush) 10 ml FLUSH ASDIRECTED PRN PRN Reason: Keep Vein Open Sodium Chloride (Saline Flush) 2.5 ml FLUSH ASDIRECTED PRN PRN Reason: Keep Vein Open Labs: Laboratory Tests 05/08/18 05/08/18 05/08/18 Range/Units 01:20 01:20 01:20 WBC 9.64 (4.0-11.0) K/uL RBC 4.33 (4.30-5.90) M/uL Hgb 13.7 (12.0-16.0) g/dL Hct 39.6 (36.0-46.0) % MCV 91.5 (80.0-98.0) fL MCH 31.6 (27.0-32.0) pg MCHC 34.6 (31.0-37.0) g/dL RDW Std Deviation 44.4 (28.0-62.0) fl RDW Coeff of Tay 13 (11.0-15.0) % Plt Count 227 (150-400) K/uL MPV 9.70 (7.40-12.00) fL Neut % (Auto) 81.8 H (48.0-80.0) % Lymph % (Auto) 14.0 L (16.0-40.0) % Meigs % (Auto) 3.6 (0.0-15.0) % Eos % (Auto) 0.3 (0.0-7.0) % Baso % (Auto) 0.3 (0.0-1.5) % Neut # (Auto) 7.9 H (1.4-5.7) K/uL Lymph # (Auto) 1.4 (0.6-2.4) K/uL Meigs # (Auto) 0.4 (0.0-0.8) K/uL Eos # (Auto) 0.0 (0.0-0.7) K/uL Baso # (Auto) 0.0 (0.0-0.1) K/uL Nucleated RBC % 0.0 /100WBC Nucleated RBCs # 0 K/uL INR 1.00 APTT (18.6-31.3) SEC Lactate 2.5 H (0.20-2.00) mmol/L Sodium (136-145) mmol/L Potassium (3.5-5.1) mmol/L Chloride (98-107) mmol/L Carbon Dioxide (21.0-32.0) mmol/L BUN (7.0-18.0) mg/dL Creatinine (0.6-1.0) mg/dL Est Cr Clr Drug Dosing Estimated GFR (MDRD) ml/min Glucose (74-106) mg/dL Calcium (8.5-10.1) mg/dL Total Bilirubin (0.2-1.0) mg/dL AST (15-37) IU/L ALT (14-63) IU/L Alkaline Phosphatase (46-116) U/L Troponin I (0.000-0.056) ng/mL Total Protein (6.4-8.2) g/dL Albumin (3.4-5.0) g/dL Globulin (2.6-4.0) g/dL Albumin/Globulin Ratio (0.9-1.6) Amylase (25-115) U/L Lipase (73-393) U/L TSH 3rd Generation (0.36-3.74) uIU/mL Urine Color Urine Appearance Urine pH (5.0-8.0) Ur Specific Watson (1.001-1.035) Urine Protein (NEGATIVE) mg/dL Urine Glucose (UA) (NEGATIVE) mg/dL Urine Ketones (NEGATIVE) mg/dL Urine Occult Blood (NEGATIVE) Urine Nitrite (NEGATIVE) Urine Bilirubin (NEGATIVE) Urine Urobilinogen (<2.0) EU/dL Ur Leukocyte Esterase (NEGATIVE) Urine RBC (0-2/HPF) Urine WBC (0-5/HPF) Ur Epithelial Cells (NONE-FEW) Urine Bacteria (NEGATIVE) Urine Mucus (NONE-MOD) 05/08/18 05/08/18 05/08/18 Range/Units 01:20 01:20 02:00 WBC (4.0-11.0) K/uL RBC (4.30-5.90) M/uL Hgb (12.0-16.0) g/dL Hct (36.0-46.0) % MCV (80.0-98.0) fL MCH (27.0-32.0) pg MCHC (31.0-37.0) g/dL RDW Std Deviation (28.0-62.0) fl RDW Coeff of Tay (11.0-15.0) % Plt Count (150-400) K/uL MPV (7.40-12.00) fL Neut % (Auto) (48.0-80.0) % Lymph % (Auto) (16.0-40.0) % Meigs % (Auto) (0.0-15.0) % Eos % (Auto) (0.0-7.0) % Baso % (Auto) (0.0-1.5) % Neut # (Auto) (1.4-5.7) K/uL Lymph # (Auto) (0.6-2.4) K/uL Meigs # (Auto) (0.0-0.8) K/uL Eos # (Auto) (0.0-0.7) K/uL Baso # (Auto) (0.0-0.1) K/uL Nucleated RBC % /100WBC Nucleated RBCs # K/uL INR APTT 26.6 (18.6-31.3) SEC Lactate (0.20-2.00) mmol/L Sodium 139 (136-145) mmol/L Potassium 3.7 (3.5-5.1) mmol/L Chloride 100 (98-107) mmol/L Carbon Dioxide 26.1 (21.0-32.0) mmol/L BUN 18 (7.0-18.0) mg/dL Creatinine 0.9 (0.6-1.0) mg/dL Est Cr Clr Drug Dosing TNP Estimated GFR (MDRD) 59.7 ml/min Glucose 163 H (74-106) mg/dL Calcium 9.6 (8.5-10.1) mg/dL Total Bilirubin 0.5 (0.2-1.0) mg/dL AST 27 (15-37) IU/L ALT 36 (14-63) IU/L Alkaline Phosphatase 157 H (46-116) U/L Troponin I < 0.050 (0.000-0.056) ng/mL Total Protein 8.1 (6.4-8.2) g/dL Albumin 4.0 (3.4-5.0) g/dL Globulin 4.1 H (2.6-4.0) g/dL Albumin/Globulin Ratio 1.0 (0.9-1.6) Amylase 39 (25-115) U/L Lipase 93 (73-393) U/L TSH 3rd Generation 0.28 L (0.36-3.74) uIU/mL Urine Color YELLOW Urine Appearance CLEAR Urine pH 7.0 (5.0-8.0) Ur Specific Watson 1.010 (1.001-1.035) Urine Protein NEGATIVE (NEGATIVE) mg/dL Urine Glucose (UA) 100 H (NEGATIVE) mg/dL Urine Ketones TRACE H (NEGATIVE) mg/dL Urine Occult Blood NEGATIVE (NEGATIVE) Urine Nitrite NEGATIVE (NEGATIVE) Urine Bilirubin NEGATIVE (NEGATIVE) Urine Urobilinogen 0.2 (<2.0) EU/dL Ur Leukocyte Esterase TRACE H (NEGATIVE) Urine RBC 0-3 (0-2/HPF) Urine WBC 0-2 (0-5/HPF) Ur Epithelial Cells RARE (NONE-FEW) Urine Bacteria 2+ H (NEGATIVE) Urine Mucus LIGHT (NONE-MOD) Meds: Medications Generic Name Dose Route Start Last Admin Trade Name Freq PRN Reason Stop Dose Admin Sodium Chloride 1,000 mls @ 125 mls/hr 05/08/18 01:30 05/08/18 02:16 Normal Saline IV 125 mls/hr ASDIRECTED WARREN Administration Sodium Chloride 10 ml 05/08/18 01:28 Saline Flush FLUSH ASDIRECTED PRN Keep Vein Open Sodium Chloride 2.5 ml 05/08/18 01:28 Saline Flush FLUSH ASDIRECTED PRN Keep Vein Open Discontinued Medications Generic Name Dose Route Start Last Admin Trade Name Freq PRN Reason Stop Dose Admin Ceftriaxone Sodium/Dextrose 1 50 mls @ 100 mls/hr 05/08/18 02:55 05/08/18 03: 18 gm/ Premix IV 05/08/18 03:24 100 mls/hr ONETIME ONE Administration Iopamidol 100 ml 05/08/18 02:52 05/08/18 02:53 Isovue Multipack-370 (76%) IVPUSH 05/08/18 02:53 100 ml ONETIME STA Administration Labetalol HCl 10 mg 05/08/18 01:56 05/08/18 02:17 Normodyne IVPUSH 05/08/18 01:57 10 mg NOW ONE Administration Protocol Departure - Departure Time of Disposition: 03:43 Disposition: Refer to Observation Condition: Fair Clinical Impression: Intraparenchymal hemorrhage of brain, Current use of intermediate designer anticoagulation - Discharge Information Referrals: PCP,None [Primary Care Provider] - Forms: ED Department Discharge - My Orders Last 24 Hours: My Active Orders 05/08/18 01:27 Blood Glucose Check, Bedside [RC] ONETIME Cardiac Monitoring [RC] . DIRECTED EKG Documentation Completion [RC] STAT Oxygen Therapy, ED [RC] ASDIRECTED Pulse Oximetry [RC] ASDIRECTED Saline Lock Insert [OM.PC] Stat 05/08/18 01:28 Sodium Chloride 0.9% [Saline Flush] 10 ml FLUSH ASDIRECTED PRN Sodium Chloride 0.9% [Saline Flush] 2.5 ml FLUSH ASDIRECTED PRN 05/08/18 01:30 Sodium Chloride 0.9% [Normal Saline] 1,000 ml IV ASDIRECTED 05/08/18 02:00 CULTURE URINE [RM] Stat 05/08/18 03:05 EKG Documentation Completion [RC] STAT - Assessment/Plan Last 24 Hours: My Active Orders 05/08/18 01:27 Blood Glucose Check, Bedside [RC] ONETIME Cardiac Monitoring [RC] . DIRECTED EKG Documentation Completion [RC] STAT Oxygen Therapy, ED [RC] ASDIRECTED Pulse Oximetry [RC] ASDIRECTED Saline Lock Insert [OM.PC] Stat 05/08/18 01:28 Sodium Chloride 0.9% [Saline Flush] 10 ml FLUSH ASDIRECTED PRN Sodium Chloride 0.9% [Saline Flush] 2.5 ml FLUSH ASDIRECTED PRN 05/08/18 01:30 Sodium Chloride 0.9% [Normal Saline] 1,000 ml IV ASDIRECTED 05/08/18 02:00 CULTURE URINE [RM] Stat 05/08/18 03:05 EKG Documentation Completion [RC] STAT
[2018-05-08] MEDS ORDERED: Labetalol 20 MG/4 ML Syringe IVPUSH ONE (01:56)
[2018-05-08 02:07] LABS: CHLORIDE,CL 100 mmol/L (98-107); SODIUM,NA 139 mmol/L (136-145)
[2018-05-08] MEDS ORDERED: Iopamidol 755 MG/ML 500 ML Multipack Bottle IVPUSH STA (02:52)
[2018-05-08] MEDS ORDERED: cefTRIAXone 1 GM in Premix Bag 1 BAG IV ONE (02:55)
--- NOTE | 2018-05-08 03:01 | CT ---
INDICATION: Acute alteration in level of awareness TECHNIQUE: Head CT without contrast. COMPARISON: April 25, 2018 FINDINGS/IMPRESSION: : Status post right parietal craniotomy. New, acute intraparenchymal hematoma deep to the craniotomy site measuring 6.4 x 3.8 x 4.8 cm. There is small amount of surrounding edema. There is extension of hemorrhage into the dependent portion of the lateral ventricles. The ventricular size is stable compared to the prior study. Mild midline shift to the left measuring approximately 3 mm. Periventricular white matter changes likely due to small vessel disease. No extra-axial fluid collection. Diffuse cerebral atrophy. There is intracranial atherosclerosis. Visualized paranasal sinuses and mastoid air cells are normally aerated. Findings discussed with Dr. Saravia at 2:57 a.m. on May 08, 2018. Please note that all CT scans at this facility use dose modulation, iterative reconstruction, and/or weight-based dosing when appropriate to reduce radiation dose to as low as reasonably achievable. Dictated by Yaneth Bey MD @ May 08 2018 2:48AM Signed by Dr. Yaneth Bey @ May 08 2018 3:00AM
--- NOTE | 2018-05-08 03:11 | CT ---
INDICATION: Pain TECHNIQUE: CT abdomen and pelvis acquired with 100 cc Isovue 370 IV contrast. COMPARISON: None FINDINGS: Lower chest: Pacemaker partially visualized. Borderline cardiomegaly. Liver: Unremarkable. Spleen: Unremarkable. Pancreas: Unremarkable. Gallbladder and bile ducts: Unremarkable. Adrenal glands: Unremarkable. Kidneys: Unremarkable. GI tract: Large amount of feces within the distal sigmoid colon. Vascular structures: Mild atherosclerotic disease. Lymph nodes: Unremarkable. Miscellaneous: Unremarkable. No free air or significant free fluid. Pelvic Organs: Small amount of air in the urinary bladder. Bones: Internal fixation hardware at L3-L5. Multilevel degenerative changes in the spine. IMPRESSION: Small amount of air in the urinary bladder. This may be due to infection or recent instrumentation. Large amount of feces in the distal sigmoid colon. Borderline cardiomegaly. Please note that all CT scans at this facility use dose modulation, iterative reconstruction, and/or weight-based dosing when appropriate to reduce radiation dose to as low as reasonably achievable. Dictated by Yaneth Bey MD @ May 08 2018 3:03AM Signed by Dr. Yaneth Bey @ May 08 2018 3:09AM
--- NOTE | 2018-05-08 03:22 | CR ---
Indication: Pain, shortness of breath Technique: Chest 1 view Comparison: April 25, 2018 Findings/Impression: Cardiovascular and mediastinum: Dual lead left-sided pacemaker appear stable in position and intact. Heart size and vasculature are normal in caliber and appearance. Mediastinum is within normal limits. Lungs and pleural space: Lung volumes are low. Lungs are clear. No sign of infiltrate or mass. No sign of pleural effusion. No pneumothorax. Bones and soft tissues: S/p reverse right shoulder arthroplasty. Dictated by Yaneth Bey MD @ May 08 2018 3:18AM Signed by Dr. Yaneth Bey @ May 08 2018 3:20AM
--- NOTE | 2018-05-08 09:55 | PCM.HP ---
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 No fevers chills or other symptoms. [facility] nursing staff denied any type of fall. Head CT was obtained in light of worsening confusion and her being obtunded. The head CT revealed new acute intraparenchymal hematoma deep to the craniotomy meauring 6.4 x 3.8 x 4.8 cm, small amouht of surrounding edema, extension of the hemorrhage into the dependent portion of the lateral ventricles, ventricle size is stable, mild midline shift to the L measuring approximately 3 mm. She has been taking Eliquis and Keppra since discharge from [place] in November. results were discussed with son at bedside, it was ultimately decided to place Anahi on comfort measures only. She will be admitted observation to assist with arranging Hospice care. Abdomen Pain Score (Numeric/FACES): 0 - Related Data Allergies/Adverse Reactions: Allergies Allergy/AdvReac Type Severity Reaction Status Date / Time No Known Allergies Allergy Verified 05/08/18 01:23 Home Medications: Home Meds Acetaminophen 500 mg PO Q6H PRN 04/24/18 [History] Apixaban [Eliquis] 2.5 mg PO BID 04/24/18 [History] Aspirin 81 mg PO DAILY 04/24/18 [History] Carvedilol 3.125 mg PO BID 04/24/18 [History] Cholecalciferol (Vitamin D3) [Vitamin D3] 5,000 unit PO DAILY 04/24/18 [History] Cyanocobalamin (Vitamin B-12) [B-12] 1,000 mcg PO DAILY 04/24/18 [History] Escitalopram [Lexapro] 10 mg PO DAILY 04/24/18 [History] Furosemide 10 mg PO QAM 04/24/18 [History] Levothyroxine 112 mcg PO ACBREAKFAST 04/24/18 [History] Losartan [Cozaar] 25 mg PO DAILY 04/24/18 [History] Lutein/Minerals/Vit A,C & E [Ocuvite] 1 tab PO DAILY 04/24/18 [History] Multivitamin [One Daily] 1 each PO DAILY 04/24/18 [History] levETIRAcetam [Keppra] 500 mg PO BID 04/24/18 [History] Cranberry Fruit Extract/Vit C [Cvs Cranberry-Vitamin C Sfgl] 1 each PO DAILY 03/15 [History] Past Medical History HEENT History: Reports: Impaired Vision Cardiovascular History: Reports: Afib, High Cholesterol, Hypertension, Pacemaker Other Cardiovascular History: Atrial Flutter Respiratory History: Reports: None Gastrointestinal History: Reports: Chronic Constipation Genitourinary History: Reports: UTI, Recurrent [employer] History: Reports: Musculoskeletal History: Reports: Osteoarthritis Neurological History: Reports: CVA Other Neuro History: hemorrhagic R CVA Psychiatric History: Reports: Dementia Other Psychiatric History: Mood Disorder Endocrine/Metabolic History: Reports: Hypothyroidism Hematologic History: Reports: Anemia Immunologic History: Reports: None Oncologic (Cancer) History: Reports: None Dermatologic History: Reports: None - Infectious Disease History Infectious Disease History: Reports: None - Past Surgical History Head Surgeries/Procedures: Reports: Craniotomy HEENT Surgical History: Reports: None GI Surgical History: Reports: None Female Surgical History: Reports: None Endocrine Surgical History: Reports: None Musculoskeletal Surgical History: Reports: Knee Replacement Other Musculoskeletal Surgeries/Procedures:: bilateral knee replacement Social & Family History - Family History Family Medical History: Noncontributory - Tobacco Use Smoking Status *Q: Never Smoker Second Hand Smoke Exposure: No - Caffeine Use Caffeine Use: Reports: None - Recreational Drug Use Recreational Drug Use: No - Living Situation & Occupation Living situation: Reports: , Extended Care Facility Occupation: Retired H&P Review of Systems - Review of Systems: Review Of Systems: Unable To Obtain (patient obtunded and not verbally responsive) Exam - Exam Exam: See Below - Vital Signs Vital Signs: Last Vital Signs Temp 97.3 F 05/08/18 04:30 Pulse 67 05/08/18 04:30 Resp 16 05/08/18 04:30 BP 157/74 H 05/08/18 04:30 Pulse Ox 94 L 05/08/18 04:30 Weight: 69.4 kg - Exam General: Obtunded HEENT: Pupils Equal, Pupils Reactive Lungs: Clear to Auscultation, Normal Respiratory Effort Cardiovascular: Regular Rate, Irregular Rhythm GI/Abdominal Exam: Normal Bowel Sounds, Soft, Non-Tender Back Exam: Normal Inspection Extremities: Normal Inspection Neuro Extensive - Mental Status: Withdraws to Pain. No: Alert, Normal Mood/ Affect Neuro Extensive - Motor, Sensory, Reflexes: Other (appears to not be able to move L arm as well, but will not follow commands. Lifting R arm reaching out intermittent. L arm moves slightly in similar fashion). No: CN II-XII Intact, Babinski - Patient Data Lab Results Last 24 hrs: Laboratory Results - last 24 hr 05/08/18 05/08/18 05/08/18 Range/Units 01:20 01:20 01:20 WBC 9.64 (4.0-11.0) K/uL RBC 4.33 (4.30-5.90) M/uL Hgb 13.7 (12.0-16.0) g/dL Hct 39.6 (36.0-46.0) % MCV 91.5 (80.0-98.0) fL MCH 31.6 (27.0-32.0) pg MCHC 34.6 (31.0-37.0) g/dL RDW Std Deviation 44.4 (28.0-62.0) fl RDW Coeff of Tay 13 (11.0-15.0) % Plt Count 227 (150-400) K/uL MPV 9.70 (7.40-12.00) fL Neut % (Auto) 81.8 H (48.0-80.0) % Lymph % (Auto) 14.0 L (16.0-40.0) % Letcher % (Auto) 3.6 (0.0-15.0) % Eos % (Auto) 0.3 (0.0-7.0) % Baso % (Auto) 0.3 (0.0-1.5) % Neut # (Auto) 7.9 H (1.4-5.7) K/uL Lymph # (Auto) 1.4 (0.6-2.4) K/uL Letcher # (Auto) 0.4 (0.0-0.8) K/uL Eos # (Auto) 0.0 (0.0-0.7) K/uL Baso # (Auto) 0.0 (0.0-0.1) K/uL Nucleated RBC % 0.0 /100WBC Nucleated RBCs # 0 K/uL INR 1.00 APTT (18.6-31.3) SEC Lactate 2.5 H (0.20-2.00) mmol/L Sodium (136-145) mmol/L Potassium (3.5-5.1) mmol/L Chloride (98-107) mmol/L Carbon Dioxide (21.0-32.0) mmol/L BUN (7.0-18.0) mg/dL Creatinine (0.6-1.0) mg/dL Est Cr Clr Drug Dosing Estimated GFR (MDRD) ml/min Glucose (74-106) mg/dL Calcium (8.5-10.1) mg/dL Total Bilirubin (0.2-1.0) mg/dL AST (15-37) IU/L ALT (14-63) IU/L Alkaline Phosphatase (46-116) U/L Troponin I (0.000-0.056) ng/mL Total Protein (6.4-8.2) g/dL Albumin (3.4-5.0) g/dL Globulin (2.6-4.0) g/dL Albumin/Globulin Ratio (0.9-1.6) Amylase (25-115) U/L Lipase (73-393) U/L TSH 3rd Generation (0.36-3.74) uIU/mL Urine Color Urine Appearance Urine pH (5.0-8.0) Ur Specific Rush (1.001-1.035) Urine Protein (NEGATIVE) mg/dL Urine Glucose (UA) (NEGATIVE) mg/dL Urine Ketones (NEGATIVE) mg/dL Urine Occult Blood (NEGATIVE) Urine Nitrite (NEGATIVE) Urine Bilirubin (NEGATIVE) Urine Urobilinogen (<2.0) EU/dL Ur Leukocyte Esterase (NEGATIVE) Urine RBC (0-2/HPF) Urine WBC (0-5/HPF) Ur Epithelial Cells (NONE-FEW) Urine Bacteria (NEGATIVE) Urine Mucus (NONE-MOD) 05/08/18 05/08/18 05/08/18 Range/Units 01:20 01:20 02:00 WBC (4.0-11.0) K/uL RBC (4.30-5.90) M/uL Hgb (12.0-16.0) g/dL Hct (36.0-46.0) % MCV (80.0-98.0) fL MCH (27.0-32.0) pg MCHC (31.0-37.0) g/dL RDW Std Deviation (28.0-62.0) fl RDW Coeff of Tay (11.0-15.0) % Plt Count (150-400) K/uL MPV (7.40-12.00) fL Neut % (Auto) (48.0-80.0) % Lymph % (Auto) (16.0-40.0) % Letcher % (Auto) (0.0-15.0) % Eos % (Auto) (0.0-7.0) % Baso % (Auto) (0.0-1.5) % Neut # (Auto) (1.4-5.7) K/uL Lymph # (Auto) (0.6-2.4) K/uL Letcher # (Auto) (0.0-0.8) K/uL Eos # (Auto) (0.0-0.7) K/uL Baso # (Auto) (0.0-0.1) K/uL Nucleated RBC % /100WBC Nucleated RBCs # K/uL INR APTT 26.6 (18.6-31.3) SEC Lactate (0.20-2.00) mmol/L Sodium 139 (136-145) mmol/L Potassium 3.7 (3.5-5.1) mmol/L Chloride 100 (98-107) mmol/L Carbon Dioxide 26.1 (21.0-32.0) mmol/L BUN 18 (7.0-18.0) mg/dL Creatinine 0.9 (0.6-1.0) mg/dL Est Cr Clr Drug Dosing TNP Estimated GFR (MDRD) 59.7 ml/min Glucose 163 H (74-106) mg/dL Calcium 9.6 (8.5-10.1) mg/dL Total Bilirubin 0.5 (0.2-1.0) mg/dL AST 27 (15-37) IU/L ALT 36 (14-63) IU/L Alkaline Phosphatase 157 H (46-116) U/L Troponin I < 0.050 (0.000-0.056) ng/mL Total Protein 8.1 (6.4-8.2) g/dL Albumin 4.0 (3.4-5.0) g/dL Globulin 4.1 H (2.6-4.0) g/dL Albumin/Globulin Ratio 1.0 (0.9-1.6) Amylase 39 (25-115) U/L Lipase 93 (73-393) U/L TSH 3rd Generation 0.28 L (0.36-3.74) uIU/mL Urine Color YELLOW Urine Appearance CLEAR Urine pH 7.0 (5.0-8.0) Ur Specific Rush 1.010 (1.001-1.035) Urine Protein NEGATIVE (NEGATIVE) mg/dL Urine Glucose (UA) 100 H (NEGATIVE) mg/dL Urine Ketones TRACE H (NEGATIVE) mg/dL Urine Occult Blood NEGATIVE (NEGATIVE) Urine Nitrite NEGATIVE (NEGATIVE) Urine Bilirubin NEGATIVE (NEGATIVE) Urine Urobilinogen 0.2 (<2.0) EU/dL Ur Leukocyte Esterase TRACE H (NEGATIVE) Urine RBC 0-3 (0-2/HPF) Urine WBC 0-2 (0-5/HPF) Ur Epithelial Cells RARE (NONE-FEW) Urine Bacteria 2+ H (NEGATIVE) Urine Mucus LIGHT (NONE-MOD) Result Diagrams: 05/08/18 01:20 05/08/18 01:20 *Q Meaningful Use (ADM) - VTE *Q VTE Pharmacological Contraindications *Q: Risk of Bleeding - Problem List (1) Palliative care status SNOMED Code(s): 515790821 ICD Code: Z51.5 - ENCOUNTER FOR PALLIATIVE CARE Status: Acute Current Visit: Yes (2) Intraparenchymal hemorrhage of brain SNOMED Code(s): 645548879 ICD Code: I61.9 - NONTRAUMATIC INTRACEREBRAL HEMORRHAGE, UNSPECIFIED Status : Acute Current Visit: Yes (3) Chronic anticoagulation SNOMED Code(s): 149820836 ICD Code: Z79.01 - RESIDENTIAL (CURRENT) USE OF ANTICOAGULANTS Status: Chronic Priority: Medium Current Visit: Yes (4) Atrial fibrillation SNOMED Code(s): 47245647 ICD Code: I48.91 - UNSPECIFIED ATRIAL FIBRILLATION Status: Chronic Priority: Medium Current Visit: No Qualifiers: Atrial fibrillation type: chronic Qualified Code(s): I48.2 - Chronic atrial fibrillation (5) History of hemorrhagic cerebrovascular accident (CVA) with residual deficit SNOMED Code(s): 124519189051577 ICD Code: I69.30 - UNSPECIFIED SEQUELAE OF CEREBRAL INFARCTION Status: Chronic Priority: Medium Current Visit: No (6) Hypertension SNOMED Code(s): 37091568 ICD Code: I10 - ESSENTIAL (PRIMARY) HYPERTENSION Status: Chronic Priority : Medium Current Visit: No Qualifiers: Hypertension type: essential hypertension Qualified Code(s): I10 - Essential (primary) hypertension (7) Hypothyroidism (acquired) SNOMED Code(s): 827563371 ICD Code: E03.9 - HYPOTHYROIDISM, UNSPECIFIED Status: Chronic Priority: Medium Current Visit: No (8) Pacemaker SNOMED Code(s): 663260903 ICD Code: Z95.0 - PRESENCE OF CARDIAC PACEMAKER Status: Chronic Priority : Medium Current Visit: No Problem List Initiated/Reviewed/Updated: Yes Orders Last 24hrs: Active Orders 24 hr Category Date Time Status Patient Status [ADT] Stat ADT 05/08/18 03:50 Active Blood Glucose Check, Bedside [RC] ONETIME Care 05/08/18 01:27 Active Cardiac Monitoring [RC] Q8H Care 05/08/18 01:27 Active EKG Documentation Completion [RC] STAT Care 05/08/18 01:27 Active EKG Documentation Completion [RC] STAT Care 05/08/18 03:05 Active Oxygen Therapy, ED [RC] ASDIRECTED Care 05/08/18 01:27 Active Pulse Oximetry [RC] ASDIRECTED Care 05/08/18 01:27 Active Vital Signs [RC] PER UNIT ROUTINE Care 05/08/18 05:23 Active Consult to Hospice [CONS] Routine Cons 05/08/18 09:54 Ordered Regular Diet [DIET] Diet 05/08/18 Breakfast Active CULTURE URINE [RM] Stat Lab 05/08/18 02:00 Received Sodium Chloride 0.9% [Saline Flush] Med 05/08/18 01:28 Active 10 ml FLUSH ASDIRECTED PRN Sodium Chloride 0.9% [Saline Flush] Med 05/08/18 01:28 Active 2.5 ml FLUSH ASDIRECTED PRN Saline Lock Insert [OM.PC] Stat Oth 05/08/18 01:27 Ordered Resuscitation Status Routine Resus Stat 05/08/18 09:54 Ordered Medication Orders Sodium Chloride (Saline Flush) 10 ml FLUSH ASDIRECTED PRN PRN Reason: Keep Vein Open Last Admin: 05/08/18 03:43 Dose: 10 ml Sodium Chloride (Saline Flush) 2.5 ml FLUSH ASDIRECTED PRN PRN Reason: Keep Vein Open Last Admin: 05/08/18 03:43 Dose: 2.5 ml Assessment/Plan Comment:: This 82 year old female admitted with acute intraparenchymal hemorrhage on palliative care. 1. Palliative care: Due to acute intraparenchymal hemorrhage. I spoke with Ru and Yuniel Anahi's sons in her room this morning. Confirm Palliative care and to consult Hospice. They are unsure if they want to return to [facility]. They ultimately would like to get her to her own home in [place], [place] and have Hospice. Savita with Hospice and [facility] clinical social worker will assist family in making arrangements for possible discharge home with Hospice. Eliane will contact Hospice in [place] to make arrangements for family. Continue comfort measures for now. Morphine for pain, Ativan for agitation PRN and Atropine for secretions PRN. DIspo: Pending arrangements for home Hospice.
[2018-05-08] MEDS ORDERED: Morphine 2 MG/ML Syringe IVPUSH PRN (12:46)
[2018-05-08] MEDS ORDERED: Atropine 1% Ophth Soln 5 ML BOTTLE SL PRN (12:46)
[2018-05-08] MEDS ORDERED: LORazepam 2 MG/ML SDV IVPUSH PRN (12:46)
--- NOTE | 2018-05-09 09:16 | PCM.PN ---
- General Info Date of Service: 05/09/18 Admission Dx/Problem (Free Text): Admission Diagnosis/Problem Admission Diagnosis/Problem Intraparenchymal hemorrhage of brain Subjective Update: Non responsive. Resting in bed. Family at bedside. - Patient Data Vitals - Most Recent: Last Vital Signs Temp 98.7 F 05/08/18 19:17 Pulse 79 05/08/18 19:17 Resp 18 05/08/18 19:17 BP 165/105 H 05/08/18 19:17 Pulse Ox 94 L 05/08/18 19:17 Weight - Most Recent: 69.4 kg I&O - Last 24 Hours: Intake & Output 05/08/18 05/09/18 05/09/18 22:59 06:59 14:59 Intake Total 0 Balance 0 Med Orders - Current: Current Medications Atropine Sulfate (Atropine 1% Oph Soln) 0 ml SL Q2H PRN PRN Reason: secretions Lorazepam (Ativan) 0.5 mg IVPUSH Q4H PRN PRN Reason: Agitation Morphine Sulfate (Morphine Sulfate) 3 mg IV Q1H PRN PRN Reason: pain/airhunger/restlessness Sodium Chloride (Saline Flush) 10 ml FLUSH ASDIRECTED PRN PRN Reason: Keep Vein Open Last Admin: 05/08/18 03:43 Dose: 10 ml Sodium Chloride (Saline Flush) 2.5 ml FLUSH ASDIRECTED PRN PRN Reason: Keep Vein Open Last Admin: 05/08/18 03:43 Dose: 2.5 ml Discontinued Medications Sodium Chloride (Normal Saline) 1,000 mls @ 125 mls/hr IV ASDIRECTED WARREN Last Admin: 05/08/18 02:16 Dose: 125 mls/hr Ceftriaxone Sodium/Dextrose 1 (gm/ Premix) 50 mls @ 100 mls/hr IV ONETIME ONE Stop: 05/08/18 03:24 Last Admin: 05/08/18 03:18 Dose: 100 mls/hr Iopamidol (Isovue Multipack-370 (76%)) 100 ml IVPUSH ONETIME STA Stop: 05/08/18 02:53 Last Admin: 05/08/18 02:53 Dose: 100 ml Labetalol HCl (Normodyne) 10 mg IVPUSH NOW ONE; Protocol Stop: 05/08/18 01:57 Last Admin: 05/08/18 02:17 Dose: 10 mg Morphine Sulfate (Morphine) 3 mg IVPUSH Q1H PRN PRN Reason: pain/airhunger/restlessness - Exam General: Obtunded Lungs: Normal Respiratory Effort Cardiovascular: Regular Rate, Regular Rhythm Neurological: No New Focal Deficit - Problem List & Annotations (1) Palliative care status SNOMED Code(s): 444808905 Code(s): Z51.5 - ENCOUNTER FOR PALLIATIVE CARE Status: Acute Current Visit: Yes (2) Intraparenchymal hemorrhage of brain SNOMED Code(s): 162111953 Code(s): I61.9 - NONTRAUMATIC INTRACEREBRAL HEMORRHAGE, UNSPECIFIED Status : Acute Current Visit: Yes (3) Chronic anticoagulation SNOMED Code(s): 768468677 Code(s): Z79.01 - STONE BANKER (CURRENT) USE OF ANTICOAGULANTS Status: Chronic Priority: Medium Current Visit: Yes (4) Atrial fibrillation SNOMED Code(s): 20950974 Code(s): I48.91 - UNSPECIFIED ATRIAL FIBRILLATION Status: Chronic Priority: Medium Current Visit: No Qualifiers: Atrial fibrillation type: chronic Qualified Code(s): I48.2 - Chronic atrial fibrillation (5) History of hemorrhagic cerebrovascular accident (CVA) with residual deficit SNOMED Code(s): 785607150475972 Code(s): I69.30 - UNSPECIFIED SEQUELAE OF CEREBRAL INFARCTION Status: Chronic Priority: Medium Current Visit: No (6) Hypertension SNOMED Code(s): 91783958 Code(s): I10 - ESSENTIAL (PRIMARY) HYPERTENSION Status: Chronic Priority : Medium Current Visit: No Qualifiers: Hypertension type: essential hypertension Qualified Code(s): I10 - Essential (primary) hypertension (7) Hypothyroidism (acquired) SNOMED Code(s): 346309549 Code(s): E03.9 - HYPOTHYROIDISM, UNSPECIFIED Status: Chronic Priority: Medium Current Visit: No (8) Pacemaker SNOMED Code(s): 401608118 Code(s): Z95.0 - PRESENCE OF CARDIAC PACEMAKER Status: Chronic Priority: Medium Current Visit: No - Problem List Review Problem List Initiated/Reviewed/Updated: Yes - My Orders Last 24 Hours: My Active Orders 05/08/18 09:54 Consult to Hospice [CONS] Routine Resuscitation Status Routine 05/08/18 12:46 Atropine 1% [Atropine 1% Ophth Soln] See Dose Instructions SL Q2H PRN LORazepam [Ativan] 0.5 mg IVPUSH Q4H PRN 05/09/18 07:43 Morphine Sulfate 3 mg IV Q1H PRN - Plan Plan:: This 82 year old female admitted with acute intraparenchymal hemorrhage on palliative care. 1. Palliative care: Due to acute intraparenchymal hemorrhage. Will be discharged home to [facility] under the care of Hospice out of [place]. Continue comfort measures for now. Morphine for pain, Ativan for agitation PRN and Atropine for secretions PRN. Dispo: Discharge to home with Hospice in am.
[2018-05-09] MEDS ORDERED: LORazepam Conc Solution 2 MG/ML 30 ML Bottle PO PRN (11:26)
[2018-05-09] MEDS ORDERED: Morphine Oral Concentrate 20 MG/ML 30 ML Bottle SL PRN (11:26)
--- NOTE | 2018-05-09 16:24 | PCM.DCSUM1 ---
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 No fevers chills or other symptoms. [facility] nursing staff denied any type of fall. Head CT was obtained in light of worsening confusion and her being obtunded. The head CT revealed new acute intraparenchymal hematoma deep to the craniotomy meauring 6.4 x 3.8 x 4.8 cm, small amouht of surrounding edema, extension of the hemorrhage into the dependent portion of the lateral ventricles, ventricle size is stable, mild midline shift to the L measuring approximately 3 mm. She has been taking Eliquis and Keppra since discharge from [place] in November. results were discussed with son at bedside, it was ultimately decided to place Anahi on comfort measures only. She will be admitted observation to assist with arranging Hospice care. Diagnosis: Stroke: No - Discharge Data Discharge Date: 05/10/18 Discharge Disposition: DC/Tfer to Hospice - Home 50 Condition: Fair - Discharge Diagnosis/Problem(s) (1) Palliative care status SNOMED Code(s): 387693431 ICD Code: Z51.5 - ENCOUNTER FOR PALLIATIVE CARE Status: Acute Current Visit: Yes (2) Intraparenchymal hemorrhage of brain SNOMED Code(s): 628149775 ICD Code: I61.9 - NONTRAUMATIC INTRACEREBRAL HEMORRHAGE, UNSPECIFIED Status : Acute Current Visit: Yes (3) Chronic anticoagulation SNOMED Code(s): 458606337 ICD Code: Z79.01 - MCFP (CURRENT) USE OF ANTICOAGULANTS Status: Chronic Priority: Medium Current Visit: Yes (4) Atrial fibrillation SNOMED Code(s): 81781088 ICD Code: I48.91 - UNSPECIFIED ATRIAL FIBRILLATION Status: Chronic Priority: Medium Current Visit: No Qualifiers: Atrial fibrillation type: chronic Qualified Code(s): I48.2 - Chronic atrial fibrillation (5) History of hemorrhagic cerebrovascular accident (CVA) with residual deficit SNOMED Code(s): 599376692764291 ICD Code: I69.30 - UNSPECIFIED SEQUELAE OF CEREBRAL INFARCTION Status: Chronic Priority: Medium Current Visit: No (6) Hypertension SNOMED Code(s): 07022069 ICD Code: I10 - ESSENTIAL (PRIMARY) HYPERTENSION Status: Chronic Priority : Medium Current Visit: No Qualifiers: Hypertension type: essential hypertension Qualified Code(s): I10 - Essential (primary) hypertension (7) Hypothyroidism (acquired) SNOMED Code(s): 775024110 ICD Code: E03.9 - HYPOTHYROIDISM, UNSPECIFIED Status: Chronic Priority: Medium Current Visit: No (8) Pacemaker SNOMED Code(s): 388041083 ICD Code: Z95.0 - PRESENCE OF CARDIAC PACEMAKER Status: Chronic Priority : Medium Current Visit: No - Patient Summary/Data Consults: Consultations 05/08/18 09:54 Consult to Hospice [CONS] Routine - Patient Instructions Diet: Usual Diet as Tolerated Activity: As Tolerated Other/Special Instructions: Home with ambulance. [facility] to admit around 2 pm. - Discharge Plan *PRESCRIPTION DRUG MONITORING PROGRAM REVIEWED*: Not Applicable *COPY OF PRESCRIPTION DRUG MONITORING REPORT IN PATIENT RAS: Not Applicable Referrals: PCP,None [Primary Care Provider] - - Discharge Summary/Plan Comment DC Time >30 min.: No Discharge Summary/Plan Comment: Discharge Diagnoses: Intraparenchymal hemorrhage Palliative Care Hospice patient Anahi was admitted and placed on palliative care due to intraparenchymal hemorrhage. She has remained unresponsive during her stay. Family has decided to transfer patient to her home in [facility] under Hospice care. She will be transferred via EMS on may 10. [facility] will admit her to hospice around 2 pm. All questions and concerns addressed with family members. - General Info Date of Service: 05/09/18 Admission Dx/Problem (Free Text: Admission Diagnosis/Problem Admission Diagnosis/Problem Intraparenchymal hemorrhage of brain Subjective Update: Unresponsive - Patient Data Vitals - Most Recent: Last Vital Signs Temp 98.4 F 05/09/18 10:08 Pulse 63 05/09/18 10:08 Resp 14 05/09/18 10:08 BP 184/67 H 05/09/18 10:08 Pulse Ox 95 05/09/18 10:08 Weight - Most Recent: 69.4 kg I&O - Last 24 hours: Intake & Output 05/09/18 05/09/18 05/09/18 06:59 14:59 22:59 Intake Total 0 Balance 0 Med Orders - Current: Current Medications Atropine Sulfate (Atropine 1% Ophth Soln) 0 ml SL Q2H PRN PRN Reason: secretions Lorazepam (Ativan) 1 mg PO Q4H PRN PRN Reason: agitation/anxiety Morphine Sulfate (Morphine 20 Mg/Ml Soln) 5 mg SL Q1H PRN PRN Reason: pain/agitation/restlessness Sodium Chloride (Saline Flush) 10 ml FLUSH ASDIRECTED PRN PRN Reason: Keep Vein Open Last Admin: 05/08/18 03:43 Dose: 10 ml Sodium Chloride (Saline Flush) 2.5 ml FLUSH ASDIRECTED PRN PRN Reason: Keep Vein Open Last Admin: 05/08/18 03:43 Dose: 2.5 ml Discontinued Medications Sodium Chloride (Normal Saline) 1,000 mls @ 125 mls/hr IV ASDIRECTED WARREN Last Admin: 05/08/18 02:16 Dose: 125 mls/hr Ceftriaxone Sodium/Dextrose 1 (gm/ Premix) 50 mls @ 100 mls/hr IV ONETIME ONE Stop: 05/08/18 03:24 Last Admin: 05/08/18 03:18 Dose: 100 mls/hr Iopamidol (Isovue Multipack-370 (76%)) 100 ml IVPUSH ONETIME STA Stop: 05/08/18 02:53 Last Admin: 05/08/18 02:53 Dose: 100 ml Labetalol HCl (Normodyne) 10 mg IVPUSH NOW ONE; Protocol Stop: 05/08/18 01:57 Last Admin: 05/08/18 02:17 Dose: 10 mg Lorazepam (Ativan) 0.5 mg IVPUSH Q4H PRN PRN Reason: Agitation Morphine Sulfate (Morphine) 3 mg IVPUSH Q1H PRN PRN Reason: pain/airhunger/restlessness Morphine Sulfate (Morphine Sulfate) 3 mg IV Q1H PRN PRN Reason: pain/airhunger/restlessness - Exam General: Reports: Obtunded Lungs: Reports: Clear to Auscultation, Normal Respiratory Effort Cardiovascular: Reports: Regular Rate, Regular Rhythm Extremities: Normal Inspection, Normal Range of Motion, Non-Tender *Q Meaningful Use (DIS) - VTE *Q VTE Pharmacological Contraindications *Q: Risk of Bleeding
== END 2018-05-10 09:20 | disposition hospice, home (50) ==
LOC: MW.ED 01:10 → MW.MS 03:50
PROVIDERS: ADMIT Internal Medicine; ATTEND Internal Medicine
DX: I61.8 Other nontraumatic intracerebral hemorrhage (principal); I10 Essential (primary) hypertension; I48.2 Chronic atrial fibrillation; I69.30 Unspecified sequelae of cerebral infarction; E03.9 Hypothyroidism, unspecified; E78.00 Pure hypercholesterolemia, unspecified; Z51.5 Encounter for palliative care; Z95.0 Presence of cardiac pacemaker; Z79.82 Long term (current) use of aspirin; Z79.01 Long term (current) use of anticoagulants; Z79.899 Other long term (current) drug therapy
CPT/HCPCS: 36415; 70450; 71045; 74177; 80053; 81001; 82150; 83605; 83690; 84443; 84484; 85025; 85610; 85730; 87086; 87088; 87186; 93005; 96361; 96365; 96375; 99285; J0696; J3490; J7040; Q9967; G0378